=== PATIENT | male | born 1945 | race Caucasian/White ===

== ENCOUNTER → 2017-08-21 | Outpatient (CLI) | payer MEDICARE ==
--- NOTE | 2017-08-21 15:31 | RADIOLOGY REPORT (SQ) ---
EXAM DESCRIPTION: CT LUNG CANCER SCREENING COMPLETED DATE/TIME: 08/21/2017 1:12 pm REASON FOR STUDY: NICOTINE DEPENDENCE, UNSPECIFIED,UNCOMPLICATED (F17.200) F17.200 NICOTINE DEPENDE NCE, UNSPECIFIED, UNCOMPLICATED Has the patient had a Chest CT scan within the past year? Was the patient offered tobacco cessation counseling? Was the patient engaged in shared decision making for this test? Does the patient have signs or symptoms of Lung Cancer? Is the patient a smoker? How many packs per year? How many years since quitting smoking? Patients age: COMPARISON: None. TECHNIQUE: Low Dose CT scan performed of the chest without intravenous contrast for purposes of scre ening for lung cancer. Images reviewed with lung, soft tissue and bone windows. Reconstructed coron al and sagittal MPR images reviewed. All images stored on PACS. All CT scanners at this facility use dose modulation, iterative reconstruction, and/or weight based d osing when appropriate to reduce radiation dose to as low as reasonably achievable (ALARA). [facility]: Dose Right [facility]: CareDose [facility]: Dose Right [facility]: Teradose 4D [facility]: [employer] RADIATION DOSE: Up-to-date CT equipment and radiation dose reduction techniques were employed. CTDIv ol: 2.1 mGy. DLP: 92 mGy-cm. mGy. . LIMITATIONS: None FINDINGS: LUNGS AND PLEURA: No masses or nodules. No pleural effusions or calcifications. No pne umothorax. Centrilobular and paraseptal emphysema in the upper lobes. HILAR AND MEDIASTINAL STRUCTURES: No identified masses. No abnormal nodes. HEART AND VASCULAR STRUCTURES: No aortic aneurysm. No pericardial effusion. No cardiac devices. CORONARY ARTERY CALCIFICATIONS: Not Applicable status post CABG. UPPER ABDOMEN, THYROID, BONES, OTHER SOFT TISSUES: Large hiatal hernia. IMPRESSION: NEGATIVE LUNG CANCER SCREENING. OTHER FINDINGS ABOVE. LUNGRADS: LUNGRADS: 1 NEGATIVE. NO NODULES, OR DEFINITELY BENIGN NODULES MODIFIER: NONE RECOMMENDATION: Continue annual screening with LDCT in 12 months. COMMENT: CRITERIA: No lung nodules. Nodules with specific calcifications: Complete, central, popcorn, concentric rings and fat containin g nodules. TECHNICAL DOCUMENTATION: JOB ID: [id number] Quality ID # [id number]: Final reports with documentation of one or more dose reduction techniques (e.g., Au tomated exposure control, adjustment of the mA and/or kV according to patient size, use of iterative reconstruction technique) 2010 [employer]
== END ==
LOC: RAD 12:44
PROVIDERS: ATTEND Family Medicine
DX: Z12.2 Encounter for screening for malignant neoplasm of respiratory organs (principal); Z87.891 Personal history of nicotine dependence
CPT/HCPCS: G0297

== ENCOUNTER 2018-01-27 10:53 | Emergency (ER) | payer MEDICARE ==
[2018-01-27] MEDS ORDERED: IPRATROPIUM/ALBUTEROL 0.5-2.5 MG/3 ML AMPUL NEB ONE (11:24)
[2018-01-27] MEDS ORDERED: MAGNESIUM SULFATE/D5W 1 GM/100 ML RTUPB IV ONE (11:24)
[2018-01-27] MEDS ORDERED: ALBUTEROL SULFATE 0.083% NEB 2.5 MG/3 ML AMPUL NEB ONE (11:24)
--- NOTE | 2018-01-27 11:25 | ER Document Report ---
ED Medical Screen (RME) - General Chief Complaint: Shortness Of Breath Stated Complaint: SHORTNESS OF BREATH TRAVEL OUTSIDE OF THE [place] IN LAST 30 DAYS: No - HPI Notes: 01/27/18 11:23 Shortness of breath history of smoking cough no chest pain - Related Data Allergies/Adverse Reactions: Penicillins Allergy (Unknown, Verified 10/06/12 14:54) Past Medical History - Past Medical History Cardiac Medical History: Reports: Hx Coronary Artery Disease, Hx Heart Attack, Hx Hypercholesterolemia, Hx Hypertension Pulmonary Medical History: Reports: Hx Asthma Denies: Hx Bronchitis, Hx Pneumonia Renal/ Medical History: Denies: Hx Peritoneal Dialysis Past Surgical History: Reports: Hx Cardiac Surgery - CABG x 4, Hx Orthopedic Surgery - wirst fractures on right - Immunizations Hx Diphtheria, Pertussis, Tetanus Vaccination: No Review of Systems - Review of Systems Respiratory: Cough, Short of breath Physical Exam - Vital signs Vitals: Temp Pulse Resp BP Pulse Ox 97.8 F 54 L 16 131/62 H 96 01/27/18 10:59 01/27/18 10:59 01/27/18 10:59 01/27/18 10:59 01/27/18 10:59 - Respiratory Breath sounds: Rhonchi, Wheezing - Cardiovascular Rhythm: Regular, Tachycardia Course - Re-evaluation Re-evalutation: 01/27/18 11:24 I have greeted and performed a rapid initial assessment of this patient. A comprehensive ED assessment and evaluation of the patient, analysis of test results and completion of the medical decision making process will be conducted by additional ED providers. - Vital Signs Vital signs: Temp Pulse Resp BP Pulse Ox 97.8 F 54 L 16 131/62 H 96 01/27/18 10:59 01/27/18 10:59 01/27/18 10:59 01/27/18 10:59 01/27/18 10:59
[2018-01-27 11:51] LABS: HEMATOCRIT 36.8 % (37.9-51.0); MEAN CORPUSCULAR HEMOGLOBIN 25.9 pg (27.0-33.4); MEAN CORPUSCULAR HGB CONC 32.6 g/dL (32.0-36.0); MEAN CORPUSCULAR VOLUME 80 fl (80-97); PLATELET COUNT 338 10^3/uL (150-450); RED BLOOD COUNT 4.63 10^6/uL (4.35-5.55); RED CELL DISTRIBUTION WIDTH 14.3 % (11.5-14.0)
[2018-01-27 11:52] LABS: VENOUS BLOOD BASE EXCESS -1.1 mmol/L; VENOUS BLOOD HCO3 25.9 mmol/L (20-32); VENOUS BLOOD PCO2 53.3 mmHg (35-63); VENOUS BLOOD PH 7.3 (7.30-7.42)
[2018-01-27 12:11] LABS: ALANINE AMINOTRANSFERASE 24 U/L (21-72); ALBUMIN 4.5 g/dL (3.5-5.0); ALKALINE PHOSPHATASE 60 U/L (38-126); ANION GAP 11 (5-19); ASPARTATE AMINO TRANSFERASE 26 U/L (17-59); BILIRUBIN,DIRECT 0.1 mg/dL (0.0-0.4); BILIRUBIN,TOTAL 0.8 mg/dL (0.2-1.3); BLOOD UREA NITROGEN 24 mg/dL (7-20); CALCIUM 9.2 mg/dL (8.4-10.2); CARBON DIOXIDE 28 mmol/L (22-30); CHLORIDE 104 mmol/L (98-107); CREATINE KINASE 203 U/L (55-170); GLUCOSE 96 mg/dL (75-110); POTASSIUM 4.5 mmol/L (3.6-5.0); SODIUM 143.2 mmol/L (137-145); TOTAL PROTEIN 7.2 g/dL (6.3-8.2)
--- NOTE | 2018-01-27 12:14 | RADIOLOGY REPORT (SQ) ---
EXAM DESCRIPTION: CHEST SINGLE VIEW COMPLETED DATE/TIME: 01/27/2018 11:55 am REASON FOR STUDY: sob COMPARISON: 01/08/2016 EXAM PARAMETERS: NUMBER OF VIEWS: One view. TECHNIQUE: Single frontal radiographic view of the chest acquired. RADIATION DOSE: NA LIMITATIONS: None. FINDINGS: LUNGS AND PLEURA: No opacities, masses or pneumothorax. No pleural effusion. MEDIASTINUM AND HILAR STRUCTURES: There appears to be a small hiatal hernia. HEART AND VASCULAR STRUCTURES: Heart normal in size. Normal vasculature. BONES: No acute findings. HARDWARE: Sternotomy wires. OTHER: No other significant finding. IMPRESSION: Small hiatal hernia with no acute cardiopulmonary disease. TECHNICAL DOCUMENTATION: JOB ID: [id number] [employer]- All Rights Reserved Reading location - IP/workstation name: [email or web address]
[2018-01-27 12:17] LABS: ABSOLUTE LYMPHOCYTES# (MANUAL) 1.7 10^3/uL (0.5-4.7); ABSOLUTE NEUTROPHILS# (MANUAL) 2.6 10^3/uL (1.7-8.2); BASOPHILS % (MANUAL) 0 % (0-2); LYMPHOCYTES % (MANUAL) 24 % (13-45); MONOCYTES % (MANUAL) 14 % (3-13); SEGMENTED NEUTROPHILS % (MAN) 37 % (42-78); TOTAL CELLS COUNTED 100
[2018-01-27 12:18] LABS: EOSINOPHILS % (MANUAL) 25 % (0-6)
[2018-01-27 12:21] LABS: HYPOCHROMASIA SLIGHT; PLATELET COMMENT ADEQUATE; POLYCHROMASIA SLIGHT
[2018-01-27 12:23] LABS: TROPONIN I < 0.012 ng/mL
[2018-01-27] MEDS ORDERED: ACETAMINOPHEN WITH CODEINE 120-12 MG/5 ML UDCUP PO ONE (12:55)
--- NOTE | 2018-01-27 13:58 | ER Document Report ---
ED Respiratory Problem - General Chief Complaint: Shortness Of Breath Stated Complaint: SHORTNESS OF BREATH Time Seen by Provider: 01/27/18 11:25 Mode of Arrival: Ambulatory Information source: Patient, Relative Notes: Patient is a 72-year-old male with history of COPD and CHF who presents to the ER today for 1 week of worsening shortness of breath and wheezing with productive cough of thick green sputum. Patient denies any fevers or chills, body aches that he has noticed. He states that he is more short of breath walking around and has been having to sleep on multiple pillows or in the recliner over the past week in order to breathe he denies any swelling to his lower extremities. He has been using his albuterol inhaler 1-2 times a day which has been helping a little. TRAVEL OUTSIDE OF THE [place] IN LAST 30 DAYS: No - Related Data Allergies/Adverse Reactions: Penicillins Allergy (Unknown, Verified 10/06/12 14:54) Past Medical History - General Information source: Patient - Social History Smoking Status: Former Smoker Family History: Reviewed & Not Pertinent Patient has suicidal ideation: No Patient has homicidal ideation: No - Past Medical History Cardiac Medical History: Reports: Hx Coronary Artery Disease, Hx Heart Attack, Hx Hypercholesterolemia, Hx Hypertension Pulmonary Medical History: Reports: Hx Asthma Denies: Hx Bronchitis, Hx Pneumonia Renal/ Medical History: Denies: Hx Peritoneal Dialysis Past Surgical History: Reports: Hx Cardiac Surgery - CABG x 4, Hx Orthopedic Surgery - wirst fractures on right - Immunizations Hx Diphtheria, Pertussis, Tetanus Vaccination: No Review of Systems - Review of Systems Constitutional: No symptoms reported EENT: No symptoms reported Cardiovascular: No symptoms reported Respiratory: See HPI Gastrointestinal: No symptoms reported Genitourinary: No symptoms reported Male Genitourinary: No symptoms reported Musculoskeletal: No symptoms reported Skin: No symptoms reported Hematologic/Lymphatic: No symptoms reported Neurological/Psychological: No symptoms reported Physical Exam - Vital signs Vitals: Temp Pulse Resp BP Pulse Ox 97.8 F 54 L 16 131/62 H 96 01/27/18 10:59 01/27/18 10:59 01/27/18 10:59 01/27/18 10:59 01/27/18 10:59 - Notes Notes: PHYSICAL EXAMINATION: GENERAL: Well-appearing and in no acute distress. HEAD: Atraumatic, normocephalic. EYES: Pupils equal round and reactive to light, extraocular movements intact, sclera anicteric, conjunctiva are normal. ENT: ear canals without erythema or foreign body, TMs pearly mckeon with good bony landmarks, nares patent, oropharynx clear without exudates. Moist mucous membranes. Airway patent NECK: Normal range of motion, supple without lymphadenopathy LUNGS: Mild expiratory wheezes throughout, no rales or rhonchi. HEART: Regular rate and rhythm without murmurs ABDOMEN: Soft, no tenderness. No guarding, no rebound BACK: no vertebral tenderness, normal ROM GI/: no CVA tenderness EXTREMITIES: Normal range of motion, no pitting edema. No cyanosis. NEUROLOGICAL: Cranial nerves grossly intact. Normal sensory/motor exams. PSYCH: Normal mood, normal affect. SKIN: Warm, Dry, normal turgor, no rashes or lesions noted Course - Re-evaluation Re-evalutation: 01/29/18 10:22 Laboratory workup unremarkable today, chest x-ray negative for any acute pathology, no pneumonia or fluid buildup, no pitting edema to lower extremities. Patient was satting at 100% on room air here without any tachycardia or tachypnea, vital signs all within normal limits. I will start patient on azithromycin, provide him with steroids. 01/29/18 10:23 01/29/18 10:23 01/29/18 10:24 - Vital Signs Vital signs: Temp Pulse Resp BP Pulse Ox 97.8 F 54 L 17 124/64 100 01/27/18 10:59 01/27/18 10:59 01/27/18 13:05 01/27/18 13:05 01/27/18 13:05 - Laboratory Result Diagrams: 01/27/18 11:35 01/27/18 11:35 Laboratory results interpreted by me: 01/27/18 01/27/18 11:35 11:35 Hgb 12.0 L Hct 36.8 L MCH 25.9 L RDW 14.3 H Seg Neuts % (Manual) 37 L Monocytes % (Manual) 14 H Eosinophils % (Manual) 25 H Absolute Eos (Manual) 1.8 H BUN 24 H Creatinine 1.32 H Est GFR (Non-Af Amer) 53 L Creatine Kinase 203 H Discharge - Discharge Clinical Impression: COPD exacerbation Condition: Stable Disposition: HOME, SELF-CARE Additional Instructions: Return immediately for any new or worsening symptoms. Follow up with primary care provider, call tomorrow to make followup appointment. Prescriptions: Azithromycin [Zithromax 250 mg Tablet] 250 mg PO ASDIR PRN #6 tablet PRN Reason: Prednisone [Deltasone 20 mg Tablet] 3 tab PO DAILY 5 Days tablet
[2018-01-27 14:22] VITALS: BP 124/64
--- NOTE | 2018-01-27 19:22 | EKG REPORT ---
SEVERITY:- ABNORMAL ECG - SINUS RHYTHM ABNORMAL T, CONSIDER ISCHEMIA, ANT-LAT LEADS : Confirmed by: Aris Narayanan 27-Jan-2018 19:21:38
[2018-01-28 15:26] LABS: PATH REVIEW PATHOLOGIST REVIEWED
== END 2018-01-27 14:26 | disposition home or self-care (01) ==
LOC: ER 10:53
DX: J44.1 Chronic obstructive pulmonary disease with (acute) exacerbation (principal); R06.02 Shortness of breath; R05 Cough; I25.10 Atherosclerotic heart disease of native coronary artery without angina pectoris; I10 Essential (primary) hypertension; I25.2 Old myocardial infarction; Z88.0 Allergy status to penicillin; Z87.891 Personal history of nicotine dependence; Z95.1 Presence of aortocoronary bypass graft
CPT/HCPCS: 93005; 94640 ×2; 99285; 96374; 36415; 82553; 82550; 83735; 85025; 80053; 84484; 82803; 71045; 93010; A9270 ×3; J3475; J3490; J7620

== ENCOUNTER 2019-10-26 12:32 | Emergency (ER) | payer MEDICARE ==
[2019-10-26] MEDS ORDERED: IBUPROFEN 600 MG TABLET PO ONE (13:36)
--- NOTE | 2019-10-26 13:40 | ER Document Report ---
HPI - HPI Time Seen by Provider: 10/26/19 13:29 Pain Level: 1 Context: Patient is a 74-year-old male who presents to the emergency department with a chief complaint of left foot pain. Patient reports yesterday afternoon a horse stepped on the top of his left foot. Patient reports he is mostly having pain to the second, third and fourth digits of the left foot. Patient denies bruising or swelling. Patient denies deformity. Patient reports he is able to ambulate although this does induce pain. Patient reports he did take some Tylenol around 10 AM this morning. Patient reports he sought care to do an x- ray to rule out fracture. Patient denies history of diabetes or any open wounds to the foot. Past Medical History - General Information source: Patient - Social History Smoking Status: Former Smoker Frequency of alcohol use: None Drug Abuse: None Lives with: Family Family History: Reviewed & Not Pertinent Patient has suicidal ideation: No Patient has homicidal ideation: No - Past Medical History Cardiac Medical History: Reports: Hx Coronary Artery Disease, Hx Heart Attack, Hx Hypercholesterolemia, Hx Hypertension Pulmonary Medical History: Reports: Hx Asthma Denies: Hx Bronchitis, Hx Pneumonia EENT Medical History: Reports: None Neurological Medical History: Reports: None Endocrine Medical History: Reports: None Renal/ Medical History: Reports: None. Denies: Hx Peritoneal Dialysis Malignancy Medical History: Reports None GI Medical History: Reports: None Musculoskeletal Medical History: Reports None Skin Medical History: Reports None Psychiatric Medical History: Reports: None Traumatic Medical History: Reports: None Infectious Medical History: Reports: None Past Surgical History: Reports: Hx Cardiac Surgery - CABG x 4, Hx Orthopedic Surgery - wirst fractures on right - Immunizations Hx Diphtheria, Pertussis, Tetanus Vaccination: No Vertical Provider Document - CONSTITUTIONAL Agree With Documented VS: Yes Exam Limitations: No Limitations General Appearance: No Apparent Distress - INFECTION CONTROL TRAVEL OUTSIDE OF THE [place] IN LAST 30 DAYS: No - HEENT HEENT: Atraumatic, Normal ENT Exam, Normocephalic, PERRLA - NECK Neck: Normal Inspection - RESPIRATORY Respiratory: Breath Sounds Normal, No Respiratory Distress - CARDIOVASCULAR Cardiovascular: Regular Rate, Regular Rhythm - GI/ABDOMEN Gastrointestinal: Abdomen Soft, Abdomen Non-Tender, Normal Bowel Sounds - BACK Back: Normal Inspection - MUSCULOSKELETAL/EXTREMETIES Musculoskeletal/Extremeties: FROM, Tender Notes: Patient has tenderness noted to the left second third and fourth metatarsal. There is no ecchymosis, edema or erythema. There is no open wound. - NEURO Level of Consciousness: Awake, Alert, Appropriate - DERM Integumentary: Warm, Dry, No Rash Course - Re-evaluation Re-evalutation: 10/26/19 15:23 I did discuss the results of the x-ray with the patient and were informed him that it is imperative he follows up due to the lesions on his foot. Patient reports he does see Dr. Leonardo that he will call his office to make an appointment. I reiterated the importance so they can rule out possible metastasis versus benign etiology. I did inform him that the radiologist recommended an MRI. Patient verbalized understanding. - Vital Signs Vital signs: Temp Pulse Resp BP Pulse Ox 97.6 F 81 16 126/68 H 95 10/26/19 12:37 10/26/19 12:37 10/26/19 12:37 10/26/19 12:37 10/26/19 12:37 - Diagnostic Test Radiology reviewed: Reports reviewed Radiology results interpreted by me: 10/26/19 14:51 Foot X-Ray 10/26/19 13:36 IMPRESSION: NO RADIOGRAPHIC EVIDENCE OF ACUTE INJURY. SEVERAL LUCENT LESIONS IN THE PHALANGES OF THE 1ST AND 2ND TOE. THESE COULD BE DUE TO METASTASES ALTHOUGH OTHER ETIOLOGIES INCLUDING BENIGN PROCESSES MAY ALSO BE POSSIBLE. WOULD CONSIDER FOLLOW-UP WITH ROUTINE OUTPATIENT MRI OF THE FOOT. Discharge - Discharge Clinical Impression: Left foot pain Condition: Stable Disposition: HOME, SELF-CARE Additional Instructions: *Today you are seen in the emergency department for left foot pain after being stepped on by a horse. Your foot x-ray did not show any acute abnormality such as a fracture or dislocation. It was noted that you had several lesions to the first and second toe. It is unsure what is causing these lesions but it could be something benign or cancerous. It was recommended by the radiologist to consider a follow-up with routine outpatient MRI of the foot. I have provided you with a printout of your x-ray read. I would take this to your primary care physician so this can be further evaluated. *Your diagnosis today is a left foot contusion. This is due to a crushing of deep tissues. Ice, elevate the left foot. Use Tylenol and ibuprofen. Please return the emergency department if pain increases or if swelling becomes severe. Contusion Your injury has resulted in a contusion -- a crushing of the deep tissues. No injury to important structures was detected during the physician's exam. Contusions vary in the amount of pain they cause, and in the length of time required for healing. Typically, the area will become bruised, and will remain painful to touch for two or three weeks. However, most patients are back to working and playing within a few days. After the initial period of rest and cold-packs, your symptoms (together with the doctor's recommendations) will determine how rapidly you can get back to full activity. Usually this means "do what feels okay, but don't do things that hurt." If re-examination was recommended, it's important to follow up as instructed. Call the doctor or return any time if pain increases, if swelling becomes severe, if you develop numbness or weakness in an injured extremity, or if any other alarming symptoms occur.
--- NOTE | 2019-10-26 14:47 | RADIOLOGY REPORT (SQ) ---
EXAM DESCRIPTION: FOOT LEFT COMPLETE COMPLETED DATE/TIME: 10/26/2019 2:34 pm REASON FOR STUDY: horse stepped on top of left foot COMPARISON: None. NUMBER OF VIEWS: Three views. TECHNIQUE: AP, lateral and oblique radiographic images acquired of the left foot. LIMITATIONS: None. FINDINGS: MINERALIZATION: Normal. BONES: No acute fracture or dislocation. There are several lucent lesions in the phalanges of the 1s t and 2nd toe. JOINTS: No effusions. SOFT TISSUES: No soft tissue swelling. No foreign body. OTHER: No other significant finding. IMPRESSION: NO RADIOGRAPHIC EVIDENCE OF ACUTE INJURY. SEVERAL LUCENT LESIONS IN THE PHALANGES OF TH E 1ST AND 2ND TOE. THESE COULD BE DUE TO METASTASES ALTHOUGH OTHER ETIOLOGIES INCLUDING BENIGN PROCE SSES MAY ALSO BE POSSIBLE. WOULD CONSIDER FOLLOW-UP WITH ROUTINE OUTPATIENT MRI OF THE FOOT. TECHNICAL DOCUMENTATION: JOB ID: [id number] [employer]- All Rights Reserved Reading location - IP/workstation name: [email or web address]
[2019-10-26 15:10] VITALS: BP 129/58
== END 2019-10-26 15:10 | disposition home or self-care (01) ==
LOC: ER 12:32
DX: M79.675 Pain in left toe(s) (principal); W55.12XA Struck by horse, initial encounter; M89.9 Disorder of bone, unspecified; I25.10 Atherosclerotic heart disease of native coronary artery without angina pectoris; I10 Essential (primary) hypertension; J45.909 Unspecified asthma, uncomplicated; Z87.891 Personal history of nicotine dependence
CPT/HCPCS: 99283; 73630; A9270

== ENCOUNTER 2020-08-02 11:07 | Inpatient (IN) | payer MEDICARE ==
[2020-08-02] MEDS ORDERED: LEVOFLOXACIN 750 MG/D5W RTU 750 MG/150 ML RTUPB IV ONE (12:39)
[2020-08-02] MEDS ORDERED: DIPH/PERTUSS(ACELL)/TETANUS VAC/PF 0.5 ML SYR (>=10YO) IM ONE (12:48)
--- NOTE | 2020-08-02 12:48 | ER Document Report ---
ED General - General Stated Complaint: FEVER Time Seen by Provider: 08/02/20 12:21 Primary Care Provider: SANA COLLINS MD [Primary Care Provider] - Follow up as needed Notes: CHIEF COMPLAINT: Cough, fever HPI: 74-year-old male with history of hypertension, high cholesterol, CAD, CABG x4, COPD presenting for worsening cough over the last 2 to 3 days. Patient reports some lightheadedness and had a fall last night because of the lightheade dness hitting his head on a dresser and cutting the top of his head. States he just gotten out of bed when he became lightheaded. Denies lightheadedness today. Denies shortness of breath today. Denies nausea vomiting abdominal pain today. Patient states he has had fevers up to 102 in the last 2 days. ROS: See HPI - all other systems were reviewed and are otherwise negative Constitutional: + fever Eyes: no drainage, no blurred vision ENT: no runny nose, no sore throat Cardiovascular: no chest pain Resp: no SOB, + cough GI: no vomiting, no diarrhea, no abdominal pain : no dysuria Integumentary: no rash Allergy: no hives Musculoskeletal: no extremity pain or swelling Neurological: no numbness/tingling, no weakness MEDICATIONS: I agree with the patient medications as charted by the RN. ALLERGIES: I agree with the allergies as charted by the RN. PAST MEDICAL HISTORY/PAST SURGICAL HISTORY: Reviewed and agree as charted by RN. SOCIAL HISTORY: Reviewed and agree as charted by RN. FAMILY HISTORY: No significant familial comorbid conditions directly related to patient complaint EXAM: Reviewed vital signs as charted by RN. CONSTITUTIONAL: Alert and oriented and responds appropriately to questions. Well-appearing; well-nourished HEAD: Normocephalic; superficial skin tear noted to the vertex of the scalp without depression of the skull or tenderness on palpation EYES: PERRL; Conjunctivae clear, sclerae non-icteric ENT: normal nose; no rhinorrhea; moist mucous membranes; pharynx without lesions noted, no uvula edema or deviation, no tonsillar hypertrophy, phonation normal NECK: Supple without meningismus; non-tender; no cervical lymphadenopathy, no masses CARD: Mild tachycardia; no murmurs, no clicks, no rubs, no gallops; symmetric distal pulses RESP: Normal chest excursion without splinting or tachypnea; breath sounds noted to have rhonchi on the right, pulse oximetry 93% on room air mildly hypoxic ABD/GI: Normal bowel sounds; non-distended; soft, non-tender, no rebound, no guarding; no palpable organomegaly or masses. BACK: The back appears normal and is non-tender to palpation, there is no CVA tenderness EXT: Normal ROM in all joints; non-tender to palpation; no cyanosis, no effusions, no edema SKIN: Normal color for age and race; warm; dry; good turgor; no acute lesions noted NEURO: Moves all extremities equally; Motor and sensory function intact PSYCH: The patient's mood and manner are appropriate. Grooming and personal hygiene are appropriate. MDM: 74-year-old male presenting with cough and fever over the last 3 days. Patient initially was mildly hypotensive with a systolic pressure of 90, states he does take 2 blood pressure medications at home did take them today and does not normally check his blood pressure. Patient fell and hit his head last night stating he was lightheaded when he got out of the bed. Has had fever up to 102 at home in the last 2 days. He has rhonchi in the right chest on exam. Concern for pneumonia or sepsis. Will obtain chest x-ray, sepsis labs. Sepsis fluids were ordered, has already received 1 L normal saline due to hypotension prior to my evaluation so we will add 2 L of lactated Ringer's to complete his bolus of 2400 at 30 mL/kg. TRAVEL OUTSIDE OF THE [place] IN LAST 30 DAYS: No - Related Data Allergies/Adverse Reactions: Penicillins Allergy (Unknown, Verified 10/06/12 14:54) Past Medical History - Social History Smoking Status: Unknown if Ever Smoked Family History: Reviewed & Not Pertinent - Past Medical History Cardiac Medical History: Reports: Hx Coronary Artery Disease, Hx Heart Attack, Hx Hypercholesterolemia, Hx Hypertension Pulmonary Medical History: Reports: Hx Asthma Denies: Hx Bronchitis, Hx Pneumonia Renal/ Medical History: Denies: Hx Peritoneal Dialysis Past Surgical History: Reports: Hx Cardiac Surgery - CABG x 4, Hx Orthopedic Surgery - wirst fractures on right - Immunizations Hx Diphtheria, Pertussis, Tetanus Vaccination: No Physical Exam - Vital signs Vitals: Temp 99.8 F 08/02/20 11:09 Course - Re-evaluation Re-evalutation: 08/02/20 15:07 Patient appears to have a left lower lobe infiltrate suggesting pneumonia which is consistent with the patient's history. Patient troponin was slightly bumped at 0.088. Pulse oximetry between 89 and 91% on room air. Patient with a leukocytosis of 15.6. BNP is also slightly elevated. Spoke with Dr. Calderon hospitalist service who will come down to evaluate the patient. Patient has been given sepsis fluids and Rocephin. 08/02/20 15:[address] Blair attending - Vital Signs Vital signs: Temp Pulse Resp BP Pulse Ox 99.1 F 96 16 102/61 100 08/02/20 11:16 08/02/20 11:16 08/02/20 11:16 08/02/20 12:18 08/02/20 11:16 - Laboratory Result Diagrams: 08/02/20 11:40 08/02/20 11:40 Laboratory results interpreted by me: 08/02/20 08/02/20 08/02/20 11:40 11:40 11:40 WBC 15.6 H RDW 14.7 H Seg Neuts % (Manual) 81 H Lymphocytes % (Manual) 3 L Abs Neuts (Manual) 13.3 H Abs Monocytes (Manual) 1.7 H BUN 29 H Creatinine 1.96 H Est GFR ( Amer) 40 L Est GFR (MDRD) Non-Af 33 L NT-Pro-B Natriuret Pep 1520 H Urine Protein Urine Blood 08/02/20 14:40 WBC RDW Seg Neuts % (Manual) Lymphocytes % (Manual) Abs Neuts (Manual) Abs Monocytes (Manual) BUN Creatinine Est GFR ( Amer) Est GFR (MDRD) Non-Af NT-Pro-B Natriuret Pep Urine Protein 30 H Urine Blood MODERATE H Discharge - Discharge Clinical Impression: Fever in adult, Hypoxia Pneumonia Qualifiers: Pneumonia type: due to unspecified organism Laterality: left Lung location: lower lobe of lung Qualified Code(s): J18.9 - Pneumonia, unspecified organism Condition: Stable Disposition: ADMITTED INPATIENT Unit Admitted: Telemetry Referrals: SANA COLLINS MD [Primary Care Provider] - Follow up as needed
[2020-08-02 13:15] LABS: PROTHROMBIN TIME 14.4 SEC (11.4-15.4)
[2020-08-02 13:20] LABS: ALBUMIN 4.3 g/dL (3.5-5.0); ALKALINE PHOSPHATASE 56 U/L (38-126); ANION GAP 14 (5-19); ASPARTATE AMINO TRANSFERASE 42 U/L (17-59); BILIRUBIN,DIRECT 0.4 mg/dL (0.0-0.4); BILIRUBIN,TOTAL 1.1 mg/dL (0.2-1.3); BLOOD UREA NITROGEN 29 mg/dL (7-20); CALCIUM 8.5 mg/dL (8.4-10.2); CARBON DIOXIDE 22 mmol/L (22-30); CHLORIDE 101 mmol/L (98-107); GLUCOSE 109 mg/dL (75-110); POTASSIUM 3.9 mmol/L (3.6-5.0); TOTAL PROTEIN 7.3 g/dL (6.3-8.2)
[2020-08-02 13:25] LABS: HEMATOCRIT 39.3 % (37.9-51.0); HEMOGLOBIN 13.7 g/dL (13.5-17.0); MEAN CORPUSCULAR HEMOGLOBIN 29.2 pg (27.0-33.4); MEAN CORPUSCULAR HGB CONC 34.9 g/dL (32.0-36.0); MEAN CORPUSCULAR VOLUME 84 fl (80-97); PLATELET COUNT 244 10^3/uL (150-450); RED BLOOD COUNT 4.71 10^6/uL (4.35-5.55); RED CELL DISTRIBUTION WIDTH 14.7 % (11.5-14.0); WHITE BLOOD COUNT 15.6 10^3/uL (4.0-10.5)
[2020-08-02 13:38] LABS: VENOUS BLOOD BASE EXCESS -2.8 mmol/L; VENOUS BLOOD HCO3 22.8 mmol/L (20-32); VENOUS BLOOD PCO2 42.7 mmHg (35-63); VENOUS BLOOD PH 7.35 (7.30-7.42)
[2020-08-02 13:42] LABS: TROPONIN I 0.088 ng/mL
[2020-08-02 13:51] LABS: ABSOLUTE LYMPHOCYTES# (MANUAL) 0.6 10^3/uL (0.5-4.7); ABSOLUTE MONOCYTES # (MANUAL) 1.7 10^3/uL (0.1-1.4); BAND NEUTROPHILS % (MANUAL) 4 % (3-5); BASOPHILS % (MANUAL) 0 % (0-2); EOSINOPHILS % (MANUAL) 0 % (0-6); LYMPHOCYTES % (MANUAL) 3 % (13-45); MONOCYTES % (MANUAL) 11 % (3-13); SEGMENTED NEUTROPHILS % (MAN) 81 % (42-78); TOTAL CELLS COUNTED 100
[2020-08-02 13:53] LABS: RBC MORPHOLOGY COMMENT NORMO-CYTIC/CHROMIC
[2020-08-02 13:54] LABS: PLATELET COMMENT ADEQUATE
[2020-08-02 13:56] LABS: ANISOCYTOSIS SLIGHT
--- NOTE | 2020-08-02 13:56 | RADIOLOGY REPORT (SQ) ---
EXAM DESCRIPTION: CT HEAD WITHOUT IMAGES COMPLETED DATE/TIME: 08/02/2020 1:47 pm REASON FOR STUDY: trauma COMPARISON: None. TECHNIQUE: Axial images acquired through the brain without intravenous contrast. Images reviewed wit h bone, brain and subdural windows. Images stored on PACS. All CT scanners at this facility use dose modulation, iterative reconstruction, and/or weight based d osing when appropriate to reduce radiation dose to as low as reasonably achievable (ALARA). [facility]: Dose Right [facility]: CareDose [facility]: Dose Right [facility]: Teradose 4D [facility]: Smart Local [employer] RADIATION DOSE: CT Rad equipment meets quality standard of care and radiation dose reduction techniq ues were employed. CTDIvol: 53.2 mGy. DLP: 991 mGy-cm.. LIMITATIONS: None. FINDINGS: VENTRICLES: Normal size and contour. CEREBRUM: No masses. No hemorrhage. No midline shift. Age appropriate white matter. No evidence for a cute infarction. CEREBELLUM: No masses. No hemorrhage. No alteration of density. No evidence for acute infarction. EXTRA-AXIAL SPACES: No fluid collections. ORBITS AND GLOBE: No intra- or extraconal masses. Normal contour of globe without masses. CALVARIUM: No fracture. PARANASAL SINUSES: Mild mucosal thickening. SOFT TISSUES: No mass or hematoma. OTHER: No other significant finding. IMPRESSION: NO ACUTE INTRACRANIAL FINDINGS. EVIDENCE OF ACUTE STROKE: NO. TECHNICAL DOCUMENTATION: JOB ID: [id number] Quality ID # [id number]: Final reports with documentation of one or more dose reduction techniques (e.g., Au tomated exposure control, adjustment of the mA and/or kV according to patient size, use of iterative reconstruction technique) 2010 [employer]- All Rights Reserved Reading location - IP/workstation name: [employer]
[2020-08-02 14:00] LABS: A TYPE INFLUENZA AG NEGATIVE (NEGATIVE); B INFLUENZA AG NEGATIVE (NEGATIVE)
--- NOTE | 2020-08-02 14:44 | RADIOLOGY REPORT (SQ) ---
EXAM DESCRIPTION: CHEST SINGLE VIEW IMAGES COMPLETED DATE/TIME: 08/02/2020 2:29 pm REASON FOR STUDY: sob COMPARISON: 01/07/2018 EXAM PARAMETERS: NUMBER OF VIEWS: One view. TECHNIQUE: Single frontal radiographic view of the chest acquired. RADIATION DOSE: NA LIMITATIONS: None. FINDINGS: LUNGS AND PLEURA: Low lung volumes with resultant bronchovascular crowding. Left lung bas e patchy mixed interstitial and airspace opacities. No pleural effusion. No pneumothorax. MEDIASTINUM AND HILAR STRUCTURES: No masses. Contour normal. HEART AND VASCULAR STRUCTURES: Mild cardiomegaly without central vascular congestion. BONES: No acute findings. HARDWARE: Midline surgical changes. OTHER: No other significant finding. IMPRESSION: In the appropriate clinical setting, findings are consistent with left lung base multifo shawn pneumonia. TECHNICAL DOCUMENTATION: JOB ID: [id number] 2010 [employer]- All Rights Reserved Reading location - IP/workstation name: [email or web address]
[2020-08-02 14:59] LABS: APPEARANCE,URINE SLIGHTLY-CLOUDY; BILIRUBIN,URINE NEGATIVE (NEGATIVE); COLOR,URINE YELLOW; GLUCOSE, URINE NEGATIVE (NEGATIVE); KETONES,URINE NEGATIVE (NEGATIVE); LEUKOCYTE ESTERASE,URINE NEGATIVE (NEGATIVE); NITRITE,URINE NEGATIVE (NEGATIVE); PROTEIN,URINE 30 mg/dL (NEGATIVE); URINE SPECIFIC GRAVITY 1.015; UROBILINOGEN,URINE NEGATIVE mg/dL (<2.0)
[2020-08-02] MEDS ORDERED: ONDANSETRON HCL INJ/PF 4 MG/2 ML SDV IV PRN (15:47)
[2020-08-02] MEDS ORDERED: NORMAL SALINE 1000 ML 1,000 ML IV PRN (15:47)
[2020-08-02] MEDS ORDERED: ACETAMINOPHEN 325 MG TABLET PO PRN (15:47)
--- NOTE | 2020-08-02 16:13 | PDOC H&P ---
History of Present Illness Admission Date/PCP: 08/02/20 15:16 SANA COLLINS MD History of Present Illness: MILDRED MORLEY JR is a 74 year old male with a history of COPD and coronary artery disease who presents with not quite 2 days of symptoms. He said that he had been with his daughter out in [facility] for a horse show and drove back on Saturday, and Saturday he noticed he started feeling a little poorly. He said he just felt sort of achy, and he felt like he had a fever, but otherwise he said he felt fine. He has not had any chest pain or shortness of breath. No cough or sore throat. No abdominal pain, nausea, or vomiting. He said he had one episode of diarrhea yesterday but it was an isolated episode and he has not had any before since. He has not been around anyone he knows to be sick. He said his daughter has no symptoms. He lives at home with his and she is in good health. He said he has not lost his sense of taste or smell. He said he ate food last night and this morning and he could taste and smell everything just fine. He said he had a temperature of 100.9 Fahrenheit at home this morning when he got here it was 99.8. His oxygen level was in the low 90s but he is very comfortable. His creatinine was a little bit elevated. Chest x-ray was r ead as having a left lower lobe opacity. Past Medical History Cardiac Medical History: Reports: Coronary Artery Disease, Myocardial Infarction, Hyperlipidema, Hypertension Pulmonary Medical History: Reports: Asthma Denies: Bronchitis, Pneumonia Past Surgical History Past Surgical History: Reports: Orthopedic Surgery - wirst fractures on right Social History Smoking Status: Unknown if Ever Smoked Electronic Cigarette use?: No Family History Family History: Reviewed & Not Pertinent Parental Family History Reviewed: Yes Children Family History Reviewed: Yes Sibling(s) Family History Reviewed.: Yes Medication/Allergy Home Medications: Hydrocodone Bit/Acetaminophen [Vicodin 5-500 mg Tablet] 1 - 2 tab PO ASDIR PRN #20 tablet 10/06/12 Prednisone [Deltasone 10 mg Tablet] 10 mg PO ASDIR PRN #21 tablet 10/06/12 Azithromycin 250 mg PO DAILY #4 tablet 01/08/16 Prednisone [Deltasone 10 mg Tablet] 10 mg PO ASDIR PRN #21 tablet 01/08/16 Azithromycin [Zithromax 250 mg Tablet] 250 mg PO ASDIR PRN #6 tablet 01/27/18 Prednisone [Deltasone 20 mg Tablet] 3 tab PO DAILY 5 Days tablet 01/27/18 Allergies/Adverse Reactions: Penicillins Allergy (Unknown, Verified 10/06/12 14:54) Review of Systems All systems: reviewed and no additional remarkable complaints except as stated - All systems were reviewed and were negative except as noted in the HPI Physical Exam Vital Signs: Temp Pulse Resp BP Pulse Ox 99.1 F 96 16 102/61 100 08/02/20 11:16 08/02/20 11:16 08/02/20 11:16 08/02/20 12:18 08/02/20 11:16 Intake & Output 08/01/20 08/02/20 08/03/20 06:59 06:59 06:59 Weight 79.379 kg General appearance: PRESENT: no acute distress, cooperative, disheveled Head exam: PRESENT: atraumatic, normocephalic Eye exam: PRESENT: EOMI, PERRLA. ABSENT: conjunctival injection, nystagmus, scleral icterus Ear exam: PRESENT: normal external ear exam Neck exam: PRESENT: full ROM. ABSENT: carotid bruit, JVD, lymphadenopathy, meningismus, tenderness, thyromegaly Respiratory exam: PRESENT: clear to auscultation sanjeev, symmetrical, unlabored. ABSENT: accessory muscle use, chest wall tenderness, crackles, prolonged expiratory phas, rhonchi, tachypnea, wheezes Cardiovascular exam: PRESENT: RRR, +S1, +S2 Pulses: PRESENT: normal carotid pulses Vascular exam: PRESENT: normal capillary refill GI/Abdominal exam: PRESENT: normal bowel sounds, soft. ABSENT: distended, guarding, rebound, tenderness Extremities exam: ABSENT: clubbing, pedal edema Musculoskeletal exam: PRESENT: normal inspection. ABSENT: deformity Neurological exam: PRESENT: alert, awake, oriented to person, oriented to place, oriented to situation, CN II-XII grossly intact. ABSENT: motor sensory deficit Psychiatric exam: PRESENT: appropriate affect, normal mood Skin exam: PRESENT: dry, warm Results Laboratory Results: 08/02/20 11:40 08/02/20 11:40 08/02/20 08/02/20 08/02/20 11:40 11:40 12:54 WBC 15.6 H RBC 4.71 Hgb 13.7 Hct 39.3 MCV 84 MCH 29.2 MCHC 34.9 RDW 14.7 H Plt Count 244 Seg Neutrophils % Not Reportable VBG pH VBG pCO2 VBG HCO3 VBG Base Excess Sodium 137.2 Potassium 3.9 Chloride 101 Carbon Dioxide 22 Anion Gap 14 BUN 29 H Creatinine 1.96 H Est GFR ( Amer) 40 L Glucose 109 Lactic Acid 1.4 Calcium 8.5 Total Bilirubin 1.1 AST 42 Alkaline Phosphatase 56 Total Protein 7.3 Albumin 4.3 Urine Color Urine Appearance Urine pH Ur Specific [place] Urine Protein Urine Glucose (UA) Urine Ketones Urine Blood Urine Nitrite Ur Leukocyte Esterase Urine WBC (Auto) Urine RBC (Auto) 08/02/20 08/02/20 08/02/20 13:15 14:40 14:53 WBC RBC Hgb Hct MCV MCH MCHC RDW Plt Count Seg Neutrophils % VBG pH 7.35 VBG pCO2 42.7 VBG HCO3 22.8 VBG Base Excess -2.8 Sodium Potassium Chloride Carbon Dioxide Anion Gap BUN Creatinine Est GFR ( Amer) Glucose Lactic Acid 1.4 Calcium Total Bilirubin AST Alkaline Phosphatase Total Protein Albumin Urine Color YELLOW Urine Appearance SLIGHTLY-CLOUDY Urine pH 5.0 Ur Specific [place] 1.015 Urine Protein 30 H Urine Glucose (UA) NEGATIVE Urine Ketones NEGATIVE Urine Blood MODERATE H Urine Nitrite NEGATIVE Ur Leukocyte Esterase NEGATIVE Urine WBC (Auto) 2 Urine RBC (Auto) 7 08/02/20 11:40 Troponin I 0.088 NT-Pro-B Natriuret Pep 1520 H Impressions: Chest X-Ray 08/02/20 12:40 IMPRESSION: In the appropriate clinical setting, findings are consistent with left lung base multifocal pneumonia. Head CT 08/02/20 12:48 IMPRESSION: NO ACUTE INTRACRANIAL FINDINGS. EVIDENCE OF ACUTE STROKE: NO. Assessment and Plan - Diagnosis (1) Sepsis Qualifiers: Sepsis type: sepsis due to unspecified organism Sepsis acute organ dysfunction status: with acute organ dysfunction Severe sepsis acute organ dysfunction type: acute renal failure Acute renal failure type: unspecified Severe sepsis shock status: without septic shock Qualified Code(s): A41.9 - Sepsis, unspecified organism; R65.20 - Severe sepsis without septic shock; N17.9 - Acute kidney failure, unspecified Is this a current diagnosis for this admission?: Yes (2) EDUARD (acute kidney injury) Is this a current diagnosis for this admission?: Yes (3) Pneumonia Qualifiers: Pneumonia type: due to unspecified organism Laterality: left Lung location: lower lobe of lung Qualified Code(s): J18.9 - Pneumonia, unspecified organism Is this a current diagnosis for this admission?: Yes (4) COPD (chronic obstructive pulmonary disease) Qualifiers: COPD type: emphysema Emphysema type: centrilobular Qualified Code(s): J43.2 - Centrilobular emphysema Is this a current diagnosis for this admission?: Yes (5) CAD (coronary artery disease) Qualifiers: Coronary Disease-Associated Artery/Lesion type: [place] artery [place] vs. transplanted heart: [place] heart Associated angina: without angina Qualified Code(s): I25.10 - Atherosclerotic heart disease of [place] coronary artery without angina pectoris Is this a current diagnosis for this admission?: Yes - Plan Summary Summary: We will put him on Rocephin and Zithromax. We will give him some IV fluids. We will monitor the trend in his labs, especially his renal function. He looks very stable at this time. They put him on oxygen in the ER but he was not dyspneic at all and he smoked heavily for many years and has some clubbing of his digits so it may be difficult to get a good pulse oximetry in that regard. ER swabbed him for COVID so we will follow-up on that. - Time Time Spent with patient: 35 or more minutes Anticipated Discharge Disposition: Home, Self Care Anticipated Discharge Timeframe: within 72 hours - Inpatient Certification Based on my medical assessment, after consideration of the patient's comorbidities, presenting symptoms, or acuity I expect that the services needed warrant INPATIENT care.: Yes I certify that my determination is in accordance with my understanding of Medicare's requirements for reasonable and necessary INPATIENT services [42 CFR 412.3e].: Yes Medical Necessity: Significant Comorbidiites Make Outpatient Treatment Too Risky, Need Close Monitoring Due to Risk of Patient Decompensation, Need For IV Fluids, Need For Continuous Telemetry Monitoring, Need for IV Antibiotics, Risk of Complication if Not Cared For in Hospital
--- NOTE | 2020-08-02 17:47 | EKG REPORT ---
SEVERITY:- ABNORMAL ECG - SINUS TACHYCARDIA LVH WITH SECONDARY REPOL ABNRM : Confirmed by: Katharina Espinoza MD 02-Aug-2020 17:46:15
[2020-08-02] MEDS: RINGERS SOLUTION,LACTATED 1,000 ML IV PRN ×2 (22:00→23:15)
[2020-08-02] MEDS: HEPARIN SOD (PORCINE) 5,000 UNIT/ML 1 ML VIAL SUBCUT SCH (23:14)
[2020-08-02] MEDS ORDERED: METOPROLOL TARTRATE 25 MG TABLET PO ONE (23:15)
[2020-08-02] MEDS ORDERED: SIMVASTATIN 40 MG TABLET PO ONE (23:15)
[2020-08-03 05:06] LABS: HEMATOCRIT 34.3 % (37.9-51.0); HEMOGLOBIN 11.8 g/dL (13.5-17.0); MEAN CORPUSCULAR HEMOGLOBIN 28.9 pg (27.0-33.4); MEAN CORPUSCULAR HGB CONC 34.4 g/dL (32.0-36.0); MEAN CORPUSCULAR VOLUME 84 fl (80-97); PLATELET COUNT 198 10^3/uL (150-450); RED BLOOD COUNT 4.09 10^6/uL (4.35-5.55); RED CELL DISTRIBUTION WIDTH 14.5 % (11.5-14.0); WHITE BLOOD COUNT 13.6 10^3/uL (4.0-10.5)
[2020-08-03 05:19] LABS: ANION GAP 8 (5-19); BLOOD UREA NITROGEN 27 mg/dL (7-20); CALCIUM 8.1 mg/dL (8.4-10.2); CARBON DIOXIDE 24 mmol/L (22-30); CHLORIDE 104 mmol/L (98-107); GLUCOSE 99 mg/dL (75-110)
[2020-08-03] MEDS: HEPARIN SOD (PORCINE) 5,000 UNIT/ML 1 ML VIAL SUBCUT SCH ×3 (05:54→21:35)
--- NOTE | 2020-08-03 10:07 | PDOC PROGRESS REPORT ---
Subjective Progress Note for:: 08/03/20 Subjective:: 74-year-old male with past medical history of COPD, CAD, presented to ED complaining of generalized weakness and fatigue and shortness of breath, endorses history of recent travel to [place], in ED was noted to be hypotensive, febrile and hypoxic. 08/03/2020. No acute events overnight. Comfortably resting in bed no apparent distress, on supplemental oxygen, alert and oriented x3 cooperative with physical examination, denies any fever, chills, nausea, vomiting, diarrhea, constipation or any urinary symptoms. Fatigue and lethargy improving compared to admission, pending COVID-19 resolved. Currently on empiric IV antibiotics. Reason For Visit: SEPSIS, CAP, EDUARD Physical Exam Vital Signs: Temp Pulse Resp BP Pulse Ox 99.9 F 95 18 105/71 97 08/03/20 03:04 08/03/20 07:00 08/03/20 03:04 08/03/20 03:04 08/03/20 03:33 Intake & Output 08/02/20 08/03/20 08/04/20 06:59 06:59 06:59 Intake Total 1410 Output Total 600 Balance 810 Weight 80.1 kg General appearance: PRESENT: no acute distress, obese, well-developed, well- nourished Head exam: PRESENT: atraumatic, normocephalic Respiratory exam: PRESENT: clear to auscultation sanjeev. ABSENT: rales, rhonchi, wheezes Cardiovascular exam: PRESENT: RRR. ABSENT: diastolic murmur, rubs, systolic murmur GI/Abdominal exam: PRESENT: normal bowel sounds, soft. ABSENT: distended, guarding, mass, organolmegaly, rebound, tenderness Extremities exam: PRESENT: full ROM. ABSENT: calf tenderness, clubbing, pedal edema Neurological exam: PRESENT: alert, awake, oriented to person, oriented to place, oriented to time, oriented to situation, CN II-XII grossly intact. ABSENT: motor sensory deficit Results Laboratory Results: 08/03/20 04:23 08/03/20 04:23 08/02/20 08/02/20 08/02/20 11:40 11:40 12:54 WBC 15.6 H RBC 4.71 Hgb 13.7 Hct 39.3 MCV 84 MCH 29.2 MCHC 34.9 RDW 14.7 H Plt Count 244 Seg Neutrophils % Not Reportable VBG pH VBG pCO2 VBG HCO3 VBG Base Excess Sodium 137.2 Potassium 3.9 Chloride 101 Carbon Dioxide 22 Anion Gap 14 BUN 29 H Creatinine 1.96 H Est GFR ( Amer) 40 L Glucose 109 Lactic Acid 1.4 Calcium 8.5 Total Bilirubin 1.1 AST 42 Alkaline Phosphatase 56 Total Protein 7.3 Albumin 4.3 Urine Color Urine Appearance Urine pH Ur Specific [place] Urine Protein Urine Glucose (UA) Urine Ketones Urine Blood Urine Nitrite Ur Leukocyte Esterase Urine WBC (Auto) Urine RBC (Auto) 08/02/20 08/02/20 08/02/20 13:15 14:40 14:53 WBC RBC Hgb Hct MCV MCH MCHC RDW Plt Count Seg Neutrophils % VBG pH 7.35 VBG pCO2 42.7 VBG HCO3 22.8 VBG Base Excess -2.8 Sodium Potassium Chloride Carbon Dioxide Anion Gap BUN Creatinine Est GFR ( Amer) Glucose Lactic Acid 1.4 Calcium Total Bilirubin AST Alkaline Phosphatase Total Protein Albumin Urine Color YELLOW Urine Appearance SLIGHTLY-CLOUDY Urine pH 5.0 Ur Specific [place] 1.015 Urine Protein 30 H Urine Glucose (UA) NEGATIVE Urine Ketones NEGATIVE Urine Blood MODERATE H Urine Nitrite NEGATIVE Ur Leukocyte Esterase NEGATIVE Urine WBC (Auto) 2 Urine RBC (Auto) 7 08/03/20 08/03/20 04:23 04:23 WBC 13.6 H RBC 4.09 L Hgb 11.8 L Hct 34.3 L MCV 84 MCH 28.9 MCHC 34.4 RDW 14.5 H Plt Count 198 Seg Neutrophils % VBG pH VBG pCO2 VBG HCO3 VBG Base Excess Sodium 135.7 L Potassium 4.0 Chloride 104 Carbon Dioxide 24 Anion Gap 8 BUN 27 H Creatinine 1.59 H Est GFR ( Amer) 51 L Glucose 99 Lactic Acid Calcium 8.1 L Total Bilirubin AST Alkaline Phosphatase Total Protein Albumin Urine Color Urine Appearance Urine pH Ur Specific [place] Urine Protein Urine Glucose (UA) Urine Ketones Urine Blood Urine Nitrite Ur Leukocyte Esterase Urine WBC (Auto) Urine RBC (Auto) 08/02/20 08/03/20 11:40 04:23 Creatine Kinase 588 H Troponin I 0.088 NT-Pro-B Natriuret Pep 1520 H Impressions: Chest X-Ray 08/02/20 12:40 IMPRESSION: In the appropriate clinical setting, findings are consistent with left lung base multifocal pneumonia. Head CT 08/02/20 12:48 IMPRESSION: NO ACUTE INTRACRANIAL FINDINGS. EVIDENCE OF ACUTE STROKE: NO. Assessment and Plan - Diagnosis (1) Acute respiratory failure with hypoxia Is this a current diagnosis for this admission?: Yes Plan: Likely due to community-acquired pneumonia caused by gram-positives including strep pneumonia, COVID-19 infection is also possibility. Chest x-ray positive for left lung base multifocal pneumonia. Presented with SPO2 of 91. Temperature 99.8. WBC 15.6. Leukocytosis trending down, afebrile, SPO2 WNL on 2 L nasal cannula. Blood and sputum cultures no growth so far. Day 2 IV antibiotics. Day 2 IV azithromycin. Day 2 IV ceftriaxone. Received 1 dose of IV levofloxacin in ED. Day 1 p.o. dexamethasone. Continue empiric broad-spectrum IV antibiotics, p.o. dexamethasone, zinc sulfate, vitamin C, duo nebs, supplemental oxygen, PRN BiPAP, pulmonary toileting, flutter valve, incentive spirometry, LABA, LABA, ICS. Follow-up sputum and blood culture. (2) Acute kidney injury superimposed on CKD Is this a current diagnosis for this admission?: Yes Plan: Prerenal most likely due to low p.o. intake. Baseline creatinine 1.6. Improving. Presented with creatinine of 1.92. Continue cautious volume resuscitation guided by volume status, avoid nephrotoxic meds. (3) CAD (coronary artery disease) Qualifiers: Coronary Disease-Associated Artery/Lesion type: [place] artery [place] vs. transplanted heart: [place] heart Associated angina: without angina Qualified Code(s): I25.10 - Atherosclerotic heart disease of [place] coronary artery without angina pectoris Is this a current diagnosis for this admission?: Yes Plan: Denies any anginal symptoms, mildly elevated troponin of 0.088 likely due to demand mismatch in the setting of CKD, no acute EKG changes. Continue antiplatelets, beta-blockers, ARB, statins. Trend troponins, if trending up we will consult cardiology. (4) COPD (chronic obstructive pulmonary disease) Qualifiers: COPD type: emphysema Emphysema type: centrilobular Qualified Code(s): J43.2 - Centrilobular emphysema Is this a current diagnosis for this admission?: Yes Plan: History of non-oxygen dependent COPD. Continue supplemental oxygen, LABA, LABA, ICS. Outpatient PCP and pulmonology follow-up. (5) Pneumonia Qualifiers: Pneumonia type: due to unspecified organism Laterality: left Lung location: lower lobe of lung Qualified Code(s): J18.9 - Pneumonia, unspecified organism Is this a current diagnosis for this admission?: Yes Plan: Plan as per #1. (6) Sepsis Qualifiers: Sepsis type: sepsis due to unspecified organism Sepsis acute organ dysfunction status: with acute organ dysfunction Severe sepsis acute organ dysfunction type: acute renal failure Acute renal failure type: unspecified Severe sepsis shock status: without septic shock Qualified Code(s): A41.9 - Sepsis, unspecified organism; R65.20 - Severe sepsis without septic shock; N17.9 - Acute kidney failure, unspecified Is this a current diagnosis for this admission?: Yes Plan: Likely due to underlying infectious process. Resolved. Vitals WNL. Continue empiric IV antibiotics, follow-up sputum and blood culture. Plan as per #1. - Plan Summary Summary: We will put him on Rocephin and Zithromax. We will give him some IV fluids. We will monitor the trend in his labs, especially his renal function. He looks very stable at this time. They put him on oxygen in the ER but he was not dyspneic at all and he smoked heavily for many years and has some clubbing of his digits so it may be difficult to get a good pulse oximetry in that regard. ER swabbed him for COVID so we will follow-up on that. - Time Time Spent with patient: 35 or more minutes Medications reviewed and adjusted accordingly: Yes Anticipated Discharge Disposition: Home, Self Care Anticipated Discharge Timeframe: within 72 hours
[2020-08-03] MEDS ORDERED: NORMAL SALINE 1000 ML 1,000 ML IV PRN (10:09)
[2020-08-03] MEDS: CHOLECALCIFEROL (D3) 1,000 UNIT (25 MCG) TABLET PO SCH (10:09)
[2020-08-03] MEDS: ASCORBIC ACID 500 MG TABLET PO SCH (10:09)
[2020-08-03] MEDS: MONTELUKAST SODIUM 10 MG TABLET PO SCH (10:09)
[2020-08-03] MEDS: ASPIRIN 81 MG TABLET, ENT COATED PO SCH (10:09)
[2020-08-03] MEDS: CEFTRIAXONE 1 GM/D5W RTU 1 GM/50 ML RTUPB IV SCH (10:10)
[2020-08-03] MEDS: AZITHROMYCIN 500 MG in DEXTROSE 5%-WATER 250 ML IV SCH (10:10)
[2020-08-03] MEDS: FLUTICASONE/UMECLIDIN/VILANTER 100-62.5-25 MCG/DOSE IH SCH (10:11)
[2020-08-03] MEDS: DEXAMETHASONE 4 MG TABLET PO SCH ×2 (17:09→21:35)
[2020-08-03] MEDS ORDERED: METOPROLOL TARTRATE PF/INJ 5 MG/5 ML SDV IV PRN (18:13)
[2020-08-03] MEDS: METOPROLOL TARTRATE 25 MG TABLET PO SCH ×2 (21:31→21:35)
[2020-08-03] MEDS: SIMVASTATIN 40 MG TABLET PO SCH (21:34)
[2020-08-04] MEDS: DEXAMETHASONE 4 MG TABLET PO SCH ×3 (05:28→21:37)
[2020-08-04] MEDS: HEPARIN SOD (PORCINE) 5,000 UNIT/ML 1 ML VIAL SUBCUT SCH ×2 (05:28→13:39)
[2020-08-04] MEDS ORDERED: INFLUENZA QUAD (6MOS+) 2020-21 VAC 0.5 ML SYR IM ONE (08:00)
[2020-08-04 08:29] LABS: ABSOLUTE LYMPHOCYTES (AUTO) 0.5 10^3/uL (0.5-4.7); ABSOLUTE MONOCYTES (AUTO) 0.4 10^3/uL (0.1-1.4); ABSOLUTE NEUT (AUTO) 6.1 10^3/uL (1.7-8.2); BASOPHILS % (AUTO) 0.1 % (0-2); HEMATOCRIT 38.7 % (37.9-51.0); HEMOGLOBIN 12.9 g/dL (13.5-17.0); LYMPHOCYTES % (AUTO) 7.4 % (13-45); MEAN CORPUSCULAR HEMOGLOBIN 28.3 pg (27.0-33.4); MEAN CORPUSCULAR HGB CONC 33.5 g/dL (32.0-36.0); MEAN CORPUSCULAR VOLUME 85 fl (80-97); MONOCYTES % (AUTO) 5.3 % (3-13); PLATELET COUNT 216 10^3/uL (150-450); RED BLOOD COUNT 4.57 10^6/uL (4.35-5.55); RED CELL DISTRIBUTION WIDTH 14.5 % (11.5-14.0); SEGMENTED NEUTROPHILS % (AUTO) 87.2 % (42-78); TOTAL CELLS COUNTED % (AUTO) 100 %
[2020-08-04 08:46] LABS: ALBUMIN 3.7 g/dL (3.5-5.0); ALKALINE PHOSPHATASE 55 U/L (38-126); ANION GAP 11 (5-19); ASPARTATE AMINO TRANSFERASE 39 U/L (17-59); BILIRUBIN,DIRECT 0.3 mg/dL (0.0-0.4); BILIRUBIN,TOTAL 0.7 mg/dL (0.2-1.3); BLOOD UREA NITROGEN 22 mg/dL (7-20); CALCIUM 8.7 mg/dL (8.4-10.2); CARBON DIOXIDE 25 mmol/L (22-30); CHLORIDE 103 mmol/L (98-107); GLUCOSE 136 mg/dL (75-110); POTASSIUM 4.8 mmol/L (3.6-5.0); TOTAL PROTEIN 6.4 g/dL (6.3-8.2)
[2020-08-04] MEDS: ASCORBIC ACID 500 MG TABLET PO SCH (09:54)
[2020-08-04] MEDS: CHOLECALCIFEROL (D3) 1,000 UNIT (25 MCG) TABLET PO SCH (09:54)
[2020-08-04] MEDS: ASPIRIN 81 MG TABLET, ENT COATED PO SCH (09:54)
[2020-08-04] MEDS: MONTELUKAST SODIUM 10 MG TABLET PO SCH (09:55)
[2020-08-04] MEDS: METOPROLOL TARTRATE 25 MG TABLET PO SCH ×2 (09:55→21:37)
[2020-08-04] MEDS: CEFTRIAXONE 1 GM/D5W RTU 1 GM/50 ML RTUPB IV SCH (09:56)
[2020-08-04] MEDS: FLUTICASONE/UMECLIDIN/VILANTER 100-62.5-25 MCG/DOSE IH SCH (09:56)
[2020-08-04] MEDS: AZITHROMYCIN 500 MG in DEXTROSE 5%-WATER 250 ML IV SCH (10:52)
[2020-08-04] MEDS ORDERED: REMDESIVIR (EUA) 200 MG in NORMAL SALINE 250 ML IV ONE (12:00)
--- NOTE | 2020-08-04 15:56 | PDOC PROGRESS REPORT ---
Subjective Progress Note for:: 08/04/20 Subjective:: 74-year-old male with past medical history of COPD, CAD, presented to ED complaining of generalized weakness and fatigue and shortness of breath, endorses history of recent travel to [place], in ED was noted to be hypotensive, febrile and hypoxic. 08/03/2020. No acute events overnight. Comfortably resting in bed no apparent distress, on supplemental oxygen, alert and oriented x3 cooperative with physical examination, denies any fever, chills, nausea, vomiting, diarrhea, constipation or any urinary symptoms. Fatigue and lethargy improving compared to admission, pending COVID-19 resolved. Currently on empiric IV antibiotics. 08/04/2020. No acute events overnight. Patient has several positive for COVID- 19, aside from generalized fatigue and weakness patient denies any fever, chills, nausea, vomiting, diarrhea, constipation or any urinary symptoms. SPO2 WNL on 2 L nasal cannula. Possible discharge home tomorrow. Reason For Visit: SEPSIS, CAP, EDUARD Physical Exam Vital Signs: Temp Pulse Resp BP Pulse Ox 98.1 F 85 19 137/64 H 96 08/04/20 10:49 08/04/20 14:00 08/04/20 10:49 08/04/20 10:49 08/04/20 10:49 Intake & Output 08/03/20 08/04/20 08/05/20 06:59 06:59 06:59 Intake Total 1410 1560 550 Output Total 600 2300 Balance 810 -740 550 Weight 80.1 kg 82.4 kg General appearance: PRESENT: no acute distress, obese, well-developed, well- nourished Head exam: PRESENT: atraumatic, normocephalic Respiratory exam: PRESENT: clear to auscultation sanjeev. ABSENT: rales, rhonchi, wheezes Cardiovascular exam: PRESENT: RRR. ABSENT: diastolic murmur, rubs, systolic murmur GI/Abdominal exam: PRESENT: normal bowel sounds, soft. ABSENT: distended, guarding, mass, organolmegaly, rebound, tenderness Extremities exam: PRESENT: full ROM. ABSENT: calf tenderness, clubbing, pedal edema Neurological exam: PRESENT: alert, awake, oriented to person, oriented to place, oriented to time, oriented to situation, CN II-XII grossly intact. ABSENT: motor sensory deficit Results Laboratory Results: 08/04/20 06:19 08/04/20 06:19 08/04/20 08/04/20 08/04/20 06:19 06:19 06:19 WBC Cancelled 7.0 RBC Cancelled 4.57 Hgb Cancelled 12.9 L Hct Cancelled 38.7 MCV Cancelled 85 MCH Cancelled 28.3 MCHC Cancelled 33.5 RDW Cancelled 14.5 H Plt Count Cancelled 216 Seg Neutrophils % 87.2 H Sodium Cancelled Potassium Cancelled Chloride Cancelled Carbon Dioxide Cancelled Anion Gap Cancelled BUN Cancelled Creatinine Cancelled Est GFR ( Amer) Cancelled Est GFR (Non-Af Amer) Cancelled Glucose Cancelled Calcium Cancelled Total Bilirubin AST Alkaline Phosphatase Total Protein Albumin 08/04/20 06:19 WBC RBC Hgb Hct MCV MCH MCHC RDW Plt Count Seg Neutrophils % Sodium 139.3 Potassium 4.8 Chloride 103 Carbon Dioxide 25 Anion Gap 11 BUN 22 H Creatinine 1.28 H Est GFR ( Amer) > 60 Est GFR (Non-Af Amer) Glucose 136 H Calcium 8.7 Total Bilirubin 0.7 AST 39 Alkaline Phosphatase 55 Total Protein 6.4 Albumin 3.7 08/02/20 14:40 Clean Catch Midstream Urine Culture - Final NO GROWTH 2 DAYS 08/02/20 08/03/20 08/03/20 11:40 04:23 10:50 Creatine Kinase 588 H Troponin I 0.088 0.075 NT-Pro-B Natriuret Pep 1520 H Impressions: Chest X-Ray 08/02/20 12:40 IMPRESSION: In the appropriate clinical setting, findings are consistent with left lung base multifocal pneumonia. Head CT 08/02/20 12:48 IMPRESSION: NO ACUTE INTRACRANIAL FINDINGS. EVIDENCE OF ACUTE STROKE: NO. Assessment and Plan - Diagnosis (1) Acute respiratory failure with hypoxia Is this a current diagnosis for this admission?: Yes Plan: Due to COVID-19 pneumonia and possible superimposed bacterial pneumonia caused by gram-positives including strep pneumonia. COVID-19 serology positive. Chest x-ray positive for left lung base multifocal pneumonia. Presented with SPO2 of 91. Temperature 99.8. WBC 15.6. WBC WNL, afebrile, SPO2 WNL on 2 L nasal cannula. Blood and sputum cultures no growth so far. Day 3 IV antibiotics. Day 3 IV azithromycin. Day 3 IV ceftriaxone. Received 1 dose of IV levofloxacin in ED. Day 1 p.o. dexamethasone. Day 1 IV remdisivir. Continue empiric broad-spectrum IV antibiotics, p.o. dexamethasone, zinc sulfate, vitamin C, duo nebs, supplemental oxygen, PRN BiPAP, pulmonary toileting, flutter valve, incentive spirometry, LABA, LABA, ICS. Follow-up sputum and blood culture. (2) Pneumonia due to COVID-19 virus Is this a current diagnosis for this admission?: Yes Plan: As per #1. (3) Acute kidney injury superimposed on CKD Is this a current diagnosis for this admission?: Yes Plan: Prerenal most likely due to low p.o. intake. Baseline creatinine 1.6. Improving. Presented with creatinine of 1.92. Continue cautious volume resuscitation guided by volume status, avoid nephrotoxic meds. (4) CAD (coronary artery disease) Qualifiers: Coronary Disease-Associated Artery/Lesion type: [place] artery [place] vs. transplanted heart: [place] heart Associated angina: without angina Qualified Code(s): I25.10 - Atherosclerotic heart disease of [place] coronary artery without angina pectoris Is this a current diagnosis for this admission?: Yes Plan: Denies any anginal symptoms, mildly elevated troponin of 0.088 likely due to demand mismatch in the setting of CKD, no acute EKG changes. Continue antiplatelets, beta-blockers, ARB, statins. Trend troponins, if trending up we will consult cardiology. (5) COPD (chronic obstructive pulmonary disease) Qualifiers: COPD type: emphysema Emphysema type: centrilobular Qualified Code(s): J4 3.2 - Centrilobular emphysema Is this a current diagnosis for this admission?: Yes Plan: History of non-oxygen dependent COPD. Continue supplemental oxygen, LABA, LABA, ICS. Outpatient PCP and pulmonology follow-up. (6) Sepsis Qualifiers: Sepsis type: sepsis due to unspecified organism Sepsis acute organ dysfunction status: with acute organ dysfunction Severe sepsis acute organ dysfunction type: acute renal failure Acute renal failure type: unspecified Severe sepsis shock status: without septic shock Qualified Code(s): A41.9 - Sepsis, unspecified organism; R65.20 - Severe sepsis without septic shock; N17.9 - Acute kidney failure, unspecified Is this a current diagnosis for this admission?: Yes Plan: Likely due to underlying infectious process. Resolved. Vitals WNL. Continue empiric IV antibiotics, follow-up sputum and blood culture. Plan as per #1. - Plan Summary Summary: We will put him on Rocephin and Zithromax. We will give him some IV fluids. We will monitor the trend in his labs, especially his renal function. He looks very stable at this time. They put him on oxygen in the ER but he was not dyspneic at all and he smoked heavily for many years and has some clubbing of his digits so it may be difficult to get a good pulse oximetry in that regard. ER swabbed him for COVID so we will follow-up on that. - Time Time Spent with patient: 35 or more minutes Medications reviewed and adjusted accordingly: Yes Anticipated Discharge Disposition: Home with Home Health Anticipated Discharge Timeframe: within 72 hours
[2020-08-04] MEDS: SIMVASTATIN 40 MG TABLET PO SCH (21:37)
[2020-08-04] MEDS: ENOXAPARIN SODIUM INJ 80 MG/0.8 ML DISP.SYRIN SUBCUT SCH (21:38)
[2020-08-05] MEDS: DEXAMETHASONE 4 MG TABLET PO SCH ×3 (05:10→21:25)
[2020-08-05 05:20] LABS: HEMATOCRIT 37.1 % (37.9-51.0); HEMOGLOBIN 12.8 g/dL (13.5-17.0); MEAN CORPUSCULAR HEMOGLOBIN 28.6 pg (27.0-33.4); MEAN CORPUSCULAR HGB CONC 34.4 g/dL (32.0-36.0); MEAN CORPUSCULAR VOLUME 83 fl (80-97); PLATELET COUNT 260 10^3/uL (150-450); RED BLOOD COUNT 4.47 10^6/uL (4.35-5.55); RED CELL DISTRIBUTION WIDTH 14.3 % (11.5-14.0)
[2020-08-05 05:26] LABS: INTERNATIONAL RATION (INR) 1.04; PROTHROMBIN TIME 13.8 SEC (11.4-15.4)
[2020-08-05 05:43] LABS: ANION GAP 12 (5-19); BLOOD UREA NITROGEN 33 mg/dL (7-20); CALCIUM 8.8 mg/dL (8.4-10.2); CARBON DIOXIDE 22 mmol/L (22-30); CHLORIDE 105 mmol/L (98-107); GLUCOSE 119 mg/dL (75-110); POTASSIUM 4.5 mmol/L (3.6-5.0)
[2020-08-05 07:08] LABS: APPEARANCE,URINE CLEAR; BILIRUBIN,URINE NEGATIVE (NEGATIVE); COLOR,URINE YELLOW; GLUCOSE, URINE NEGATIVE (NEGATIVE); KETONES,URINE NEGATIVE (NEGATIVE); LEUKOCYTE ESTERASE,URINE NEGATIVE (NEGATIVE); NITRITE,URINE NEGATIVE (NEGATIVE); PROTEIN,URINE 30 mg/dL (NEGATIVE); URINE SPECIFIC GRAVITY 1.018; UROBILINOGEN,URINE NEGATIVE mg/dL (<2.0)
[2020-08-05] MEDS: ENOXAPARIN SODIUM INJ 80 MG/0.8 ML DISP.SYRIN SUBCUT SCH ×2 (09:32→21:25)
[2020-08-05] MEDS: MONTELUKAST SODIUM 10 MG TABLET PO SCH (09:32)
[2020-08-05] MEDS: METOPROLOL TARTRATE 25 MG TABLET PO SCH ×2 (09:32→21:29)
[2020-08-05] MEDS: ASCORBIC ACID 500 MG TABLET PO SCH (09:33)
[2020-08-05] MEDS: FLUTICASONE/UMECLIDIN/VILANTER 100-62.5-25 MCG/DOSE IH SCH (09:33)
[2020-08-05] MEDS: ASPIRIN 81 MG TABLET, ENT COATED PO SCH (09:33)
[2020-08-05] MEDS: CHOLECALCIFEROL (D3) 1,000 UNIT (25 MCG) TABLET PO SCH (09:33)
[2020-08-05] MEDS: CEFTRIAXONE 1 GM/D5W RTU 1 GM/50 ML RTUPB IV SCH (09:34)
[2020-08-05] MEDS: AZITHROMYCIN 500 MG in DEXTROSE 5%-WATER 250 ML IV SCH (10:50)
[2020-08-05] MEDS: REMDESIVIR (EUA) 100 MG in NORMAL SALINE 250 ML IV SCH (12:07)
--- NOTE | 2020-08-05 12:22 | PDOC PROGRESS REPORT ---
Subjective Progress Note for:: 08/05/20 Subjective:: 74-year-old male with past medical history of COPD, CAD, presented to ED complaining of generalized weakness and fatigue and shortness of breath, endorses history of recent travel to [place], in ED was noted to be hypotensive, febrile and hypoxic. 08/03/2020. No acute events overnight. Comfortably resting in bed no apparent distress, on supplemental oxygen, alert and oriented x3 cooperative with physical examination, denies any fever, chills, nausea, vomiting, diarrhea, constipation or any urinary symptoms. Fatigue and lethargy improving compared to admission, pending COVID-19 resolved. Currently on empiric IV antibiotics. 08/04/2020. No acute events overnight. Patient has several positive for COVID- 19, aside from generalized fatigue and weakness patient denies any fever, chills, nausea, vomiting, diarrhea, constipation or any urinary symptoms. SPO2 WNL on 2 L nasal cannula. Possible discharge home tomorrow. 08/05/2020. No acute events overnight. Patient comfortably resting in bed no apparent distress, denies any fever, chills, nausea, vomiting, diarrhea, constipation or any urinary symptoms. SPO2 WNL on RA, patient is on day 2 out of 4 Rimdesivir. Reason For Visit: SEPSIS, CAP, EDUARD Physical Exam Vital Signs: Temp Pulse Resp BP Pulse Ox 97.9 F 73 19 138/66 H 95 08/05/20 10:00 08/05/20 07:22 08/05/20 07:22 08/05/20 07:22 08/05/20 07:22 Intake & Output 08/04/20 08/05/20 08/06/20 06:59 06:59 06:59 Intake Total 1560 1170 Output Total 2300 Balance -740 1170 Weight 82.4 kg 86 kg General appearance: PRESENT: no acute distress, obese, well-developed, well- nourished Head exam: PRESENT: atraumatic, normocephalic Respiratory exam: PRESENT: clear to auscultation sanjeev. ABSENT: rales, rhonchi, wheezes Cardiovascular exam: PRESENT: RRR. ABSENT: diastolic murmur, rubs, systolic murmur GI/Abdominal exam: PRESENT: normal bowel sounds, soft. ABSENT: distended, guarding, mass, organolmegaly, rebound, tenderness Neurological exam: PRESENT: alert, awake, oriented to person, oriented to place, oriented to time, oriented to situation, CN II-XII grossly intact. ABSENT: motor sensory deficit Results Laboratory Results: 08/05/20 04:32 08/05/20 04:32 08/05/20 08/05/20 08/05/20 04:32 04:32 06:41 WBC 13.0 H RBC 4.47 Hgb 12.8 L Hct 37.1 L MCV 83 MCH 28.6 MCHC 34.4 RDW 14.3 H Plt Count 260 Sodium 138.7 Potassium 4.5 Chloride 105 Carbon Dioxide 22 Anion Gap 12 BUN 33 H Creatinine 1.34 H Est GFR ( Amer) > 60 Glucose 119 H Calcium 8.8 Magnesium 1.8 Urine Color YELLOW Urine Appearance CLEAR Urine pH 5.0 Ur Specific [place] 1.018 Urine Protein 30 H Urine Glucose (UA) NEGATIVE Urine Ketones NEGATIVE Urine Blood NEGATIVE Urine Nitrite NEGATIVE Ur Leukocyte Esterase NEGATIVE Urine WBC (Auto) 1 Urine RBC (Auto) 1 08/02/20 14:40 Clean Catch Midstream Urine Culture - Final NO GROWTH 2 DAYS 08/02/20 08/03/20 08/03/20 11:40 04:23 10:50 Creatine Kinase 588 H Troponin I 0.088 0.075 NT-Pro-B Natriuret Pep 1520 H Impressions: Chest X-Ray 08/02/20 12:40 IMPRESSION: In the appropriate clinical setting, findings are consistent with left lung base multifocal pneumonia. Head CT 08/02/20 12:48 IMPRESSION: NO ACUTE INTRACRANIAL FINDINGS. EVIDENCE OF ACUTE STROKE: NO. Assessment and Plan - Diagnosis (1) Acute respiratory failure with hypoxia Is this a current diagnosis for this admission?: Yes Plan: Much improved. SPO2 WNL on RA. Due to COVID-19 pneumonia and possible superimposed bacterial pneumonia caused by gram-positives including strep pneumonia. COVID-19 serology positive. On admission presented with chest x-ray positive for left lung base multifocal pneumonia, presented with SPO2 of 91. WBC WNL, afebrile, SPO2 WNL on 2 L nasal cannula. Blood and sputum cultures no growth so far. Day 4 IV antibiotics. Day 4 IV azithromycin. Day 4 IV ceftriaxone. Received 1 dose of IV levofloxacin in ED. Day 1 p.o. dexamethasone. Day 2 IV remdisivir. Continue empiric broad-spectrum IV antibiotics, p.o. dexamethasone, zinc sulfate, vitamin C, duo nebs, supplemental oxygen, PRN BiPAP, pulmonary toileting, flutter valve, incentive spirometry, LABA, LABA, ICS. Follow-up sputum and blood culture. (2) Pneumonia due to COVID-19 virus Is this a current diagnosis for this admission?: Yes Plan: As per #1. (3) Acute kidney injury superimposed on CKD Is this a current diagnosis for this admission?: Yes Plan: Prerenal most likely due to low p.o. intake. Baseline creatinine 1.6. Improving. Presented with creatinine of 1.92. Continue cautious volume resuscitation guided by volume status, avoid nephrotoxic meds. (4) CAD (coronary artery disease) Qualifiers: Coronary Disease-Associated Artery/Lesion type: [place] artery [place] vs. transplanted heart: [place] heart Associated angina: without angina Qualified Code(s): I25.10 - Atherosclerotic heart disease of [place] coronary artery without angina pectoris Is this a current diagnosis for this admission?: Yes Plan: Denies any anginal symptoms, mildly elevated troponin of 0.088 likely due to demand mismatch in the setting of CKD, no acute EKG changes. Continue antiplatelets, beta-blockers, ARB, statins. Trend troponins, if trending up we will consult cardiology. (5) COPD (chronic obstructive pulmonary disease) Qualifiers: COPD type: emphysema Emphysema type: centrilobular Qualified Code(s): J43.2 - Centrilobular emphysema Is this a current diagnosis for this admission?: Yes Plan: History of non-oxygen dependent COPD. Continue supplemental oxygen, LABA, LABA, ICS. Outpatient PCP and pulmonology follow-up. (6) Sepsis Qualifiers: Sepsis type: sepsis due to unspecified organism Sepsis acute organ dysfunction status: with acute organ dysfunction Severe sepsis acute organ dysfunction type: acute renal failure Acute renal failure type: unspecified Severe sepsis shock status: without septic shock Qualified Code(s): A41.9 - Sepsis, unspecified organism; R65.20 - Severe sepsis without septic shock; N17.9 - Acute kidney failure, unspecified Is this a current diagnosis for this admission?: Yes Plan: Likely due to underlying infectious process. Resolved. Vitals WNL. Continue empiric IV antibiotics, follow-up sputum and blood culture. Plan as per #1. - Plan Summary Summary: We will put him on Rocephin and Zithromax. We will give him some IV fluids. We will monitor the trend in his labs, especially his renal function. He looks very stable at this time. They put him on oxygen in the ER but he was not dyspneic at all and he smoked heavily for many years and has some clubbing of his digits so it may be difficult to get a good pulse oximetry in that regard. ER swabbed him for COVID so we will follow-up on that. - Time Time Spent with patient: 25-34 minutes Medications reviewed and adjusted accordingly: Yes Anticipated Discharge Disposition: Home, Self Care Anticipated Discharge Timeframe: within 48 hours
[2020-08-05] MEDS: SIMVASTATIN 40 MG TABLET PO SCH (21:25)
[2020-08-06] MEDS: DEXAMETHASONE 4 MG TABLET PO SCH ×3 (05:22→21:31)
[2020-08-06 06:54] LABS: ABSOLUTE LYMPHOCYTES (AUTO) 0.8 10^3/uL (0.5-4.7); ABSOLUTE NEUT (AUTO) 9.5 10^3/uL (1.7-8.2); BASOPHILS % (AUTO) 0.1 % (0-2); HEMATOCRIT 38.3 % (37.9-51.0); HEMOGLOBIN 13.2 g/dL (13.5-17.0); LYMPHOCYTES % (AUTO) 7.2 % (13-45); MEAN CORPUSCULAR HEMOGLOBIN 28.9 pg (27.0-33.4); MEAN CORPUSCULAR HGB CONC 34.4 g/dL (32.0-36.0); MEAN CORPUSCULAR VOLUME 84 fl (80-97); MONOCYTES % (AUTO) 8.8 % (3-13); PLATELET COUNT 344 10^3/uL (150-450); RED BLOOD COUNT 4.57 10^6/uL (4.35-5.55); RED CELL DISTRIBUTION WIDTH 14.5 % (11.5-14.0); SEGMENTED NEUTROPHILS % (AUTO) 83.9 % (42-78); TOTAL CELLS COUNTED % (AUTO) 100 %; WHITE BLOOD COUNT 11.3 10^3/uL (4.0-10.5)
[2020-08-06 07:00] LABS: INTERNATIONAL RATION (INR) 1.09; PROTHROMBIN TIME 14.3 SEC (11.4-15.4)
[2020-08-06 07:08] LABS: ALBUMIN 3.5 g/dL (3.5-5.0); ALKALINE PHOSPHATASE 46 U/L (38-126); ANION GAP 11 (5-19); ASPARTATE AMINO TRANSFERASE 37 U/L (17-59); BILIRUBIN,DIRECT 0.3 mg/dL (0.0-0.4); BILIRUBIN,TOTAL 0.4 mg/dL (0.2-1.3); BLOOD UREA NITROGEN 32 mg/dL (7-20); CALCIUM 8.7 mg/dL (8.4-10.2); CARBON DIOXIDE 22 mmol/L (22-30); CHLORIDE 107 mmol/L (98-107); GLUCOSE 112 mg/dL (75-110); POTASSIUM 4.7 mmol/L (3.6-5.0); TOTAL PROTEIN 6.1 g/dL (6.3-8.2)
[2020-08-06] MEDS: CEFTRIAXONE 1 GM/D5W RTU 1 GM/50 ML RTUPB IV SCH (09:02)
[2020-08-06] MEDS: MONTELUKAST SODIUM 10 MG TABLET PO SCH (09:03)
[2020-08-06] MEDS: METOPROLOL TARTRATE 25 MG TABLET PO SCH ×2 (09:03→21:32)
[2020-08-06] MEDS: ENOXAPARIN SODIUM INJ 80 MG/0.8 ML DISP.SYRIN SUBCUT SCH ×2 (09:03→21:31)
[2020-08-06] MEDS: ASPIRIN 81 MG TABLET, ENT COATED PO SCH (09:14)
[2020-08-06] MEDS: FLUTICASONE/UMECLIDIN/VILANTER 100-62.5-25 MCG/DOSE IH SCH (09:15)
[2020-08-06] MEDS: ASCORBIC ACID 500 MG TABLET PO SCH (09:15)
[2020-08-06] MEDS: CHOLECALCIFEROL (D3) 1,000 UNIT (25 MCG) TABLET PO SCH (09:15)
[2020-08-06] MEDS: REMDESIVIR (EUA) 100 MG in NORMAL SALINE 250 ML IV SCH (09:53)
[2020-08-06] MEDS: AZITHROMYCIN 500 MG in DEXTROSE 5%-WATER 250 ML IV SCH (11:18)
--- NOTE | 2020-08-06 15:08 | PDOC PROGRESS REPORT ---
Subjective Progress Note for:: 08/06/20 Subjective:: 74-year-old male with past medical history of COPD, CAD, presented to ED complaining of generalized weakness and fatigue and shortness of breath, endorses history of recent travel to [place], in ED was noted to be hypotensive, febrile and hypoxic. 08/03/2020. No acute events overnight. Comfortably resting in bed no apparent distress, on supplemental oxygen, alert and oriented x3 cooperative with physical examination, denies any fever, chills, nausea, vomiting, diarrhea, constipation or any urinary symptoms. Fatigue and lethargy improving compared to admission, pending COVID-19 resolved. Currently on empiric IV antibiotics. 08/04/2020. No acute events overnight. Patient has several positive for COVID- 19, aside from generalized fatigue and weakness patient denies any fever, chills, nausea, vomiting, diarrhea, constipation or any urinary symptoms. SPO2 WNL on 2 L nasal cannula. Possible discharge home tomorrow. 08/05/2020. No acute events overnight. Patient comfortably resting in bed no apparent distress, denies any fever, chills, nausea, vomiting, diarrhea, constipation or any urinary symptoms. SPO2 WNL on RA, patient is on day 2 out of 4 Rimdesivir. 08/06/2020. No acute events overnight. SPO2 on RA. No apparent distress. Denies any fever, chills, nausea, vomiting. Ambulatory. Having normal bowel and bladder movements. DC home on Saturday once patient receives home dose of Remdesivir. Reason For Visit: SEPSIS, CAP, EDUARD Physical Exam Vital Signs: Temp Pulse Resp BP Pulse Ox 97.7 F 65 18 132/62 H 92 08/06/20 11:06 08/06/20 14:00 08/06/20 11:06 08/06/20 11:06 08/06/20 11:06 Intake & Output 08/05/20 08/06/20 08/07/20 06:59 06:59 06:59 Intake Total 7458 763 2943 Output Total 100 2 Balance 7825 241 6290 Weight 86 kg 85.3 kg General appearance: PRESENT: no acute distress, obese, well-developed, well- nourished Head exam: PRESENT: atraumatic, normocephalic Neck exam: ABSENT: carotid bruit, JVD, lymphadenopathy, thyromegaly Respiratory exam: PRESENT: clear to auscultation sanjeev. ABSENT: rales, rhonchi, wheezes Cardiovascular exam: PRESENT: RRR. ABSENT: diastolic murmur, rubs, systolic murmur GI/Abdominal exam: PRESENT: normal bowel sounds, soft. ABSENT: distended, guarding, mass, organolmegaly, rebound, tenderness Neurological exam: PRESENT: alert, awake, oriented to person, oriented to place, oriented to time, oriented to situation, CN II-XII grossly intact. ABSENT: motor sensory deficit Results Laboratory Results: 08/06/20 06:23 08/06/20 06:23 08/06/20 08/06/20 06:23 06:23 WBC 11.3 H RBC 4.57 Hgb 13.2 L Hct 38.3 MCV 84 MCH 28.9 MCHC 34.4 RDW 14.5 H Plt Count 344 Seg Neutrophils % 83.9 H Sodium 140.0 Potassium 4.7 Chloride 107 Carbon Dioxide 22 Anion Gap 11 BUN 32 H Creatinine 1.27 H Est GFR ( Amer) > 60 Glucose 112 H Calcium 8.7 Magnesium 1.7 Total Bilirubin 0.4 AST 37 Alkaline Phosphatase 46 Total Protein 6.1 L Albumin 3.5 08/02/20 08/03/20 08/03/20 11:40 04:23 10:50 Creatine Kinase 588 H Troponin I 0.088 0.075 NT-Pro-B Natriuret Pep 1520 H Impressions: Chest X-Ray 08/02/20 12:40 IMPRESSION: In the appropriate clinical setting, findings are consistent with left lung base multifocal pneumonia. Head CT 08/02/20 12:48 IMPRESSION: NO ACUTE INTRACRANIAL FINDINGS. EVIDENCE OF ACUTE STROKE: NO. Assessment and Plan - Diagnosis (1) Acute respiratory failure with hypoxia Is this a current diagnosis for this admission?: Yes Plan: Much improved. SPO2 WNL on RA. Due to COVID-19 pneumonia and possible superimposed bacterial pneumonia caused by gram-positives including strep pneumonia. COVID-19 serology positive. On admission presented with chest x-ray positive for left lung base multifocal pneumonia, presented with SPO2 of 91. WBC WNL, afebrile, SPO2 WNL on 2 L nasal cannula. Blood and sputum cultures no growth so far. Day 5 IV antibiotics. Day 5 IV azithromycin. Day 5 IV ceftriaxone. Received 1 dose of IV levofloxacin in ED. Day 2 p.o. dexamethasone. Day 2 IV remdisivir. Continue empiric broad-spectrum IV antibiotics, p.o. dexamethasone, zinc sulfate, vitamin C, duo nebs, supplemental oxygen, PRN BiPAP, pulmonary toileting, flutter valve, incentive spirometry, LABA, LABA, ICS. Follow-up sputum and blood culture. (2) Pneumonia due to COVID-19 virus Is this a current diagnosis for this admission?: Yes Plan: As per #1. (3) Acute kidney injury superimposed on CKD Is this a current diagnosis for this admission?: Yes Plan: Prerenal most likely due to low p.o. intake. Baseline creatinine 1.6. Improving. Presented with creatinine of 1.92. Continue cautious volume resuscitation guided by volume status, avoid nephrotoxic meds. (4) CAD (coronary artery disease) Qualifiers: Coronary Disease-Associated Artery/Lesion type: [place] artery [place] vs. transplanted heart: [place] heart Associated angina: without angina Qualified Code(s): I25.10 - Atherosclerotic heart disease of [place] coronary artery without angina pectoris Is this a current diagnosis for this admission?: Yes Plan: Denies any anginal symptoms, mildly elevated troponin of 0.088 likely due to demand mismatch in the setting of CKD, no acute EKG changes. Continue antiplatelets, beta-blockers, ARB, statins. Trend troponins, if trending up we will consult cardiology. (5) COPD (chronic obstructive pulmonary disease) Qualifiers: COPD type: emphysema Emphysema type: centrilobular Qualified Code(s): J43.2 - Centrilobular emphysema Is this a current diagnosis for this admission?: Yes Plan: History of non-oxygen dependent COPD. Continue supplemental oxygen, LABA, LABA, ICS. Outpatient PCP and pulmonology follow-up. (6) Sepsis Qualifiers: Sepsis type: sepsis due to unspecified organism Sepsis acute organ dysfunction status: with acute organ dysfunction Severe sepsis acute organ dysfunction type: acute renal failure Acute renal failure type: unspecified Severe sepsis shock status: without septic shock Qualified Code(s): A41.9 - Sepsis, unspecified organism; R65.20 - Severe sepsis without septic shock; N17.9 - Acute kidney failure, unspecified Is this a current diagnosis for this admission?: Yes Plan: Likely due to underlying infectious process. Resolved. Vitals WNL. Continue empiric IV antibiotics, follow-up sputum and blood culture. Plan as per #1. - Plan Summary Summary: We will put him on Rocephin and Zithromax. We will give him some IV fluids. We will monitor the trend in his labs, especially his renal function. He looks very stable at this time. They put him on oxygen in the ER but he was not dyspneic at all and he smoked heavily for many years and has some clubbing of his digits so it may be difficult to get a good pulse oximetry in that regard. ER swabbed him for COVID so we will follow-up on that. - Time Time Spent with patient: 25-34 minutes Medications reviewed and adjusted accordingly: Yes Anticipated Discharge Disposition: Home, Self Care Anticipated Discharge Timeframe: within 48 hours
[2020-08-06] MEDS: SIMVASTATIN 40 MG TABLET PO SCH (21:32)
[2020-08-07] MEDS: DEXAMETHASONE 4 MG TABLET PO SCH ×3 (05:42→21:40)
[2020-08-07 06:51] LABS: HEMATOCRIT 37.3 % (37.9-51.0); MEAN CORPUSCULAR HEMOGLOBIN 28.9 pg (27.0-33.4); MEAN CORPUSCULAR HGB CONC 34.9 g/dL (32.0-36.0); MEAN CORPUSCULAR VOLUME 83 fl (80-97); PLATELET COUNT 349 10^3/uL (150-450); RED BLOOD COUNT 4.49 10^6/uL (4.35-5.55); RED CELL DISTRIBUTION WIDTH 14.2 % (11.5-14.0)
[2020-08-07 07:08] LABS: ANION GAP 12 (5-19); BLOOD UREA NITROGEN 31 mg/dL (7-20); CALCIUM 8.4 mg/dL (8.4-10.2); CARBON DIOXIDE 21 mmol/L (22-30); CHLORIDE 106 mmol/L (98-107); GLUCOSE 103 mg/dL (75-110); POTASSIUM 4.6 mmol/L (3.6-5.0)
[2020-08-07 07:35] LABS: ABSOLUTE LYMPHOCYTES# (MANUAL) 1.7 10^3/uL (0.5-4.7); ABSOLUTE MONOCYTES # (MANUAL) 0.7 10^3/uL (0.1-1.4); ANISOCYTOSIS SLIGHT; BAND NEUTROPHILS % (MANUAL) 1 % (3-5); BASOPHILS % (MANUAL) 0 % (0-2); EOSINOPHILS % (MANUAL) 0 % (0-6); HYPERSEGMENTED NEUTROPHILS PRESENT; LYMPHOCYTES % (MANUAL) 16 % (13-45); MONOCYTES % (MANUAL) 9 % (3-13); SEGMENTED NEUTROPHILS % (MAN) 69 % (42-78); TOTAL CELLS COUNTED 100; TOXIC VACUOLATION PRESENT
[2020-08-07 07:37] LABS: BURR CELLS SLIGHT; OVALOCYTES SLIGHT; PLATELET COMMENT ADEQUATE
--- NOTE | 2020-08-07 10:21 | PDOC PROGRESS REPORT ---
Subjective Progress Note for:: 08/07/20 Subjective:: 74-year-old male with past medical history of COPD, CAD, presented to ED complaining of generalized weakness and fatigue and shortness of breath, endorses history of recent travel to [place], in ED was noted to be hypotensive, febrile and hypoxic. 08/03/2020. No acute events overnight. Comfortably resting in bed no apparent distress, on supplemental oxygen, alert and oriented x3 cooperative with physical examination, denies any fever, chills, nausea, vomiting, diarrhea, constipation or any urinary symptoms. Fatigue and lethargy improving compared to admission, pending COVID-19 resolved. Currently on empiric IV antibiotics. 08/04/2020. No acute events overnight. Patient has several positive for COVID- 19, aside from generalized fatigue and weakness patient denies any fever, chills, nausea, vomiting, diarrhea, constipation or any urinary symptoms. SPO2 WNL on 2 L nasal cannula. Possible discharge home tomorrow. 08/05/2020. No acute events overnight. Patient comfortably resting in bed no apparent distress, denies any fever, chills, nausea, vomiting, diarrhea, constipation or any urinary symptoms. SPO2 WNL on RA, patient is on day 2 out of 4 Rimdesivir. 08/06/2020. No acute events overnight. SPO2 on RA. No apparent distress. Denies any fever, chills, nausea, vomiting. Ambulatory. Having normal bowel and bladder movements. DC home on Saturday once patient receives home dose of Remdesivir. 08/07/2020. No acute events are noted SPO2 WNL on RA. No apparent distress. Denies any fever, chills, nausea, vomiting. Day 3/4 of Remdesivir discharge home tomorrow. Reason For Visit: SEPSIS, CAP, EDUARD Physical Exam Vital Signs: Temp Pulse Resp BP Pulse Ox 97.4 F 63 17 140/71 H 94 08/07/20 07:50 08/07/20 07:50 08/07/20 07:50 08/07/20 07:50 08/07/20 07:50 Intake & Output 08/06/20 08/07/20 08/08/20 06:59 06:59 06:59 Intake Total 550 1850 Output Total 100 4 Balance 450 1846 Weight 85.3 kg 85.2 kg General appearance: PRESENT: no acute distress, obese, well-developed, well-n ourished Head exam: PRESENT: atraumatic, normocephalic Respiratory exam: PRESENT: clear to auscultation sanjeev. ABSENT: rales, rhonchi, wheezes Cardiovascular exam: PRESENT: RRR. ABSENT: diastolic murmur, rubs, systolic murmur GI/Abdominal exam: PRESENT: normal bowel sounds, soft. ABSENT: distended, guarding, mass, organolmegaly, rebound, tenderness Neurological exam: PRESENT: alert, awake, oriented to person, oriented to place, oriented to time, oriented to situation, CN II-XII grossly intact. ABSENT: motor sensory deficit Skin exam: PRESENT: dry, intact, warm. ABSENT: cyanosis, rash Results Laboratory Results: 08/07/20 05:55 08/07/20 05:55 08/07/20 08/07/20 05:55 05:55 WBC 8.0 RBC 4.49 Hgb 13.0 L Hct 37.3 L MCV 83 MCH 28.9 MCHC 34.9 RDW 14.2 H Plt Count 349 Seg Neutrophils % Not Reportable Sodium 138.8 Potassium 4.6 Chloride 106 Carbon Dioxide 21 L Anion Gap 12 BUN 31 H Creatinine 1.12 Est GFR ( Amer) > 60 Glucose 103 Calcium 8.4 Magnesium 1.8 08/02/20 08/03/20 08/03/20 11:40 04:23 10:50 Creatine Kinase 588 H Troponin I 0.088 0.075 NT-Pro-B Natriuret Pep 1520 H Impressions: Chest X-Ray 08/02/20 12:40 IMPRESSION: In the appropriate clinical setting, findings are consistent with left lung base multifocal pneumonia. Head CT 08/02/20 12:48 IMPRESSION: NO ACUTE INTRACRANIAL FINDINGS. EVIDENCE OF ACUTE STROKE: NO. Assessment and Plan - Diagnosis (1) Acute respiratory failure with hypoxia Is this a current diagnosis for this admission?: Yes Plan: Much improved. SPO2 WNL on RA. Due to COVID-19 pneumonia and possible superimposed bacterial pneumonia caused by gram-positives including strep pneumonia. COVID-19 serology positive. On admission presented with chest x-ray positive for left lung base multifocal pneumonia, presented with SPO2 of 91. WBC WNL, afebrile, SPO2 WNL on 2 L nasal cannula. Blood and sputum cultures no growth so far. Day 6 IV antibiotics. Day 6 IV azithromycin. Day 6 IV ceftriaxone. Received 1 dose of IV levofloxacin in ED. Day 3 p.o. dexamethasone. Day 3 IV remdisivir. Continue empiric broad-spectrum IV antibiotics, p.o. dexamethasone, zinc sulfate, vitamin C, duo nebs, supplemental oxygen, PRN BiPAP, pulmonary toileting, flutter valve, incentive spirometry, LABA, LABA, ICS. Follow-up sputum and blood culture. (2) Pneumonia due to COVID-19 virus Is this a current diagnosis for this admission?: Yes Plan: As per #1. (3) Acute kidney injury superimposed on CKD Is this a current diagnosis for this admission?: Yes Plan: Prerenal most likely due to low p.o. intake. Baseline creatinine 1.6. Improving. Presented with creatinine of 1.92. Continue cautious volume resuscitation guided by volume status, avoid nephrotoxic meds. (4) CAD (coronary artery disease) Qualifiers: Coronary Disease-Associated Artery/Lesion type: [place] artery [place] vs. transplanted heart: [place] heart Associated angina: without angina Qualified Code(s): I25.10 - Atherosclerotic heart disease of [place] coronary artery without angina pectoris Is this a current diagnosis for this admission?: Yes Plan: Denies any anginal symptoms, mildly elevated troponin of 0.088 likely due to demand mismatch in the setting of CKD, no acute EKG changes. Continue antiplatelets, beta-blockers, ARB, statins. Trend troponins, if trending up we will consult cardiology. (5) COPD (chronic obstructive pulmonary disease) Qualifiers: COPD type: emphysema Emphysema type: centrilobular Qualified Code(s): J43.2 - Centrilobular emphysema Is this a current diagnosis for this admission?: Yes Plan: History of non-oxygen dependent COPD. Continue supplemental oxygen, LABA, LABA, ICS. Outpatient PCP and pulmonology follow-up. (6) Sepsis Qualifiers: Sepsis type: sepsis due to unspecified organism Sepsis acute organ dysfunction status: with acute organ dysfunction Severe sepsis acute organ dysfunction type: acute renal failure Acute renal failure type: unspecified Severe sepsis shock status: without septic shock Qualified Code(s): A41.9 - Sepsis, unspecified organism; R65.20 - Severe sepsis without septic shock; N17.9 - Acute kidney failure, unspecified Is this a current diagnosis for this admission?: Yes Plan: Likely due to underlying infectious process. Resolved. Vitals WNL. Continue empiric IV antibiotics, follow-up sputum and blood culture. Plan as per #1. - Plan Summary Summary: We will put him on Rocephin and Zithromax. We will give him some IV fluids. We will monitor the trend in his labs, especially his renal function. He looks very stable at this time. They put him on oxygen in the ER but he was not dyspneic at all and he smoked heavily for many years and has some clubbing of his digits so it may be difficult to get a good pulse oximetry in that regard. ER swabbed him for COVID so we will follow-up on that. - Time Time Spent with patient: 15-24 minutes Medications reviewed and adjusted accordingly: Yes Anticipated Discharge Disposition: Home, Self Care Anticipated Discharge Timeframe: within 24 hours
[2020-08-07] MEDS: FLUTICASONE/UMECLIDIN/VILANTER 100-62.5-25 MCG/DOSE IH SCH (10:47)
[2020-08-07] MEDS: ASPIRIN 81 MG TABLET, ENT COATED PO SCH (10:47)
[2020-08-07] MEDS: CHOLECALCIFEROL (D3) 1,000 UNIT (25 MCG) TABLET PO SCH (10:48)
[2020-08-07] MEDS: ASCORBIC ACID 500 MG TABLET PO SCH (10:48)
[2020-08-07] MEDS: ENOXAPARIN SODIUM INJ 80 MG/0.8 ML DISP.SYRIN SUBCUT SCH ×2 (10:50→21:40)
[2020-08-07] MEDS: CEFTRIAXONE 1 GM/D5W RTU 1 GM/50 ML RTUPB IV SCH (10:50)
[2020-08-07] MEDS: MONTELUKAST SODIUM 10 MG TABLET PO SCH (10:50)
[2020-08-07] MEDS: METOPROLOL TARTRATE 25 MG TABLET PO SCH ×2 (10:50→21:40)
[2020-08-07] MEDS: REMDESIVIR (EUA) 100 MG in NORMAL SALINE 250 ML IV SCH (11:28)
[2020-08-07] MEDS: AZITHROMYCIN 500 MG in DEXTROSE 5%-WATER 250 ML IV SCH (12:42)
[2020-08-07] MEDS: SIMVASTATIN 40 MG TABLET PO SCH (21:41)
[2020-08-08] MEDS: DEXAMETHASONE 4 MG TABLET PO SCH (05:44)
[2020-08-08 06:46] LABS: HEMOGLOBIN 13.2 g/dL (13.5-17.0); MEAN CORPUSCULAR HEMOGLOBIN 28.3 pg (27.0-33.4); MEAN CORPUSCULAR HGB CONC 33.8 g/dL (32.0-36.0); MEAN CORPUSCULAR VOLUME 84 fl (80-97); PLATELET COUNT 378 10^3/uL (150-450); RED BLOOD COUNT 4.67 10^6/uL (4.35-5.55); RED CELL DISTRIBUTION WIDTH 14.3 % (11.5-14.0); WHITE BLOOD COUNT 9.6 10^3/uL (4.0-10.5)
[2020-08-08] MEDS: MONTELUKAST SODIUM 10 MG TABLET PO SCH (09:17)
[2020-08-08] MEDS: METOPROLOL TARTRATE 25 MG TABLET PO SCH (09:17)
[2020-08-08] MEDS: CEFTRIAXONE 1 GM/D5W RTU 1 GM/50 ML RTUPB IV SCH (09:18)
[2020-08-08] MEDS: CHOLECALCIFEROL (D3) 1,000 UNIT (25 MCG) TABLET PO SCH (09:18)
[2020-08-08] MEDS: ASCORBIC ACID 500 MG TABLET PO SCH (09:18)
[2020-08-08] MEDS: ASPIRIN 81 MG TABLET, ENT COATED PO SCH (09:18)
[2020-08-08] MEDS: ENOXAPARIN SODIUM INJ 80 MG/0.8 ML DISP.SYRIN SUBCUT SCH (09:18)
[2020-08-08] MEDS: FLUTICASONE/UMECLIDIN/VILANTER 100-62.5-25 MCG/DOSE IH SCH (09:18)
[2020-08-08 09:25] LABS: APPEARANCE,URINE CLEAR; BILIRUBIN,URINE NEGATIVE (NEGATIVE); COLOR,URINE YELLOW; GLUCOSE, URINE NEGATIVE (NEGATIVE); KETONES,URINE NEGATIVE (NEGATIVE); LEUKOCYTE ESTERASE,URINE NEGATIVE (NEGATIVE); NITRITE,URINE NEGATIVE (NEGATIVE); PROTEIN,URINE NEGATIVE (NEGATIVE); URINE SPECIFIC GRAVITY 1.017; UROBILINOGEN,URINE NEGATIVE mg/dL (<2.0)
[2020-08-08] MEDS: REMDESIVIR (EUA) 100 MG in NORMAL SALINE 250 ML IV SCH (10:01)
[2020-08-08] MEDS: AZITHROMYCIN 500 MG in DEXTROSE 5%-WATER 250 ML IV SCH (11:13)
[2020-08-08 12:33] VITALS: BP 102/61
--- NOTE | 2020-08-17 07:55 | PDOC DISCHARGE SUMMARY ---
Impression - Admit/DC Date/PCP Admission Date/Primary Care Provider: 08/02/20 15:16 SANA COLLINS MD Discharge Date: 08/08/20 - Discharge Diagnosis (1) Acute respiratory failure with hypoxia Is this a current diagnosis for this admission?: Yes (2) Pneumonia due to COVID-19 virus Is this a current diagnosis for this admission?: Yes (3) Acute kidney injury superimposed on CKD Is this a current diagnosis for this admission?: Yes (4) CAD (coronary artery disease) Is this a current diagnosis for this admission?: Yes (5) COPD (chronic obstructive pulmonary disease) Is this a current diagnosis for this admission?: Yes (6) Sepsis Is this a current diagnosis for this admission?: Yes - Assessment Summary: We will put him on Rocephin and Zithromax. We will give him some IV fluids. We will monitor the trend in his labs, especially his renal function. He looks very stable at this time. They put him on oxygen in the ER but he was not dyspneic at all and he smoked heavily for many years and has some clubbing of his digits so it may be difficult to get a good pulse oximetry in that regard. ER swabbed him for COVID so we will follow-up on that. - Additional Information Discharge Diet: Cardiac Discharge Activity: Activity As Tolerated, Balance Activity w/Rest Referrals: SANA COLLINS MD [Primary Care Provider] - Follow up as needed Home Medications: Ascorbic Acid [Vitamin C with [place] Hips] 500 mg PO DAILY 08/02/20 Aspirin [Ecotrin 81 mg EC Tablet] 81 mg PO DAILY 08/02/20 Cholecalciferol (Vitamin D3) [Vitamin D3 1000 Unit Tablet] 2,000 unit PO DAILY 08/02/20 Fluticasone/Umeclidin/Vilanter [Trelegy 100-62.5-25 Mcg Ellipta 14 Dose/Dpi] 1 puff IH DAILY 08/02/20 Lisinopril/Hydrochlorothiazide [Lisinopril-Hctz 10-12.5 mg Tab] 1 tab PO QAM 08/02/20 Metoprolol Tartrate [Lopressor 25 mg Tablet] 25 mg PO Q12 08/02/20 Montelukast Sodium [Singulair 10 mg Tablet] 10 mg PO DAILY 08/02/20 Multivit-Min/FA/Lycopen/Lutein [Centrum Silver Men Tablet] 1 tab PO DAILY 08/02/20 Omeprazole 20 mg PO Q6AM 08/02/20 Simvastatin [Zocor 40 mg Tablet] 40 mg PO QHS 08/02/20 History of Present Illiness History of Present Illness: 74-year-old male with past medical history of COPD, CAD, presented to ED complaining of generalized weakness and fatigue and shortness of breath, endorses history of recent travel to [place], in ED was noted to be hypotensive, febrile and hypoxic. Hospital Course Hospital Course: (1) Acute respiratory failure with hypoxia Much improved. SPO2 WNL on RA. Due to COVID-19 pneumonia and possible superimposed bacterial pneumonia caused by gram-positives including strep pneumonia. COVID-19 serology positive. On admission presented with chest x-ray positive for left lung base multifocal pneumonia, presented with SPO2 of 91. WBC WNL, afebrile, SPO2 WNL on 2 L nasal cannula. Blood and sputum cultures no growth so far. Day 6 IV antibiotics. Day 6 IV azithromycin. Day 6 IV ceftriaxone. Received 1 dose of IV levofloxacin in ED. Day 4 p.o. dexamethasone. Day 4 IV remdisivir. Continue empiric broad-spectrum IV antibiotics, p.o. dexamethasone, zinc sulfate, vitamin C, duo nebs, supplemental oxygen, PRN BiPAP, pulmonary toileting, flutter valve, incentive spirometry, LABA, LABA, ICS. Follow-up sputum and blood culture. (2) Pneumonia due to COVID-19 virus As per #1. (3) Acute kidney injury superimposed on CKD Prerenal most likely due to low p.o. intake. Baseline creatinine 1.6. Improving. Presented with creatinine of 1.92. Continue cautious volume resuscitation guided by volume status, avoid nephrotoxic meds. (4) CAD (coronary artery disease) Denies any anginal symptoms, mildly elevated troponin of 0.088 likely due to demand mismatch in the setting of CKD, no acute EKG changes. Continue antiplatelets, beta-blockers, ARB, statins. Trend troponins, if trending up we will consult cardiology. (5) COPD (chronic obstructive pulmonary disease) History of non-oxygen dependent COPD. Continue supplemental oxygen, LABA, LABA, ICS. Outpatient PCP and pulmonology follow-up. (6) Sepsis Likely due to underlying infectious process. Resolved. Vitals WNL. Continue empiric IV antibiotics, follow-up sputum and blood culture. Plan as per #1. Physical Exam Vital Signs: Temp Pulse Resp BP Pulse Ox 97.8 F 62 18 102/61 98 08/08/20 12:32 08/08/20 12:32 08/08/20 12:32 08/08/20 12:32 08/08/20 12:32 General appearance: PRESENT: no acute distress, obese Respiratory exam: PRESENT: clear to auscultation sanjeev. ABSENT: rales, rhonchi, wheezes Cardiovascular exam: PRESENT: RRR. ABSENT: diastolic murmur, rubs, systolic murmur GI/Abdominal exam: PRESENT: normal bowel sounds, soft. ABSENT: distended, guard ing, mass, organolmegaly, rebound, tenderness Neurological exam: PRESENT: alert, awake, oriented to person, oriented to place, oriented to time, oriented to situation, CN II-XII grossly intact. ABSENT: motor sensory deficit Results Laboratory Results: WBC 9.6 10^3/uL (4.0-10.5) 08/08/20 05:45 RBC 4.67 10^6/uL (4.35-5.55) 08/08/20 05:45 Hgb 13.2 g/dL (13.5-17.0) L 08/08/20 05:45 Hct 39.0 % (37.9-51.0) 08/08/20 05:45 MCV 84 fl (80-97) 08/08/20 05:45 MCH 28.3 pg (27.0-33.4) 08/08/20 05:45 MCHC 33.8 g/dL (32.0-36.0) 08/08/20 05:45 RDW 14.3 % (11.5-14.0) H 08/08/20 05:45 Plt Count 378 10^3/uL (150-450) 08/08/20 05:45 Lymph % (Auto) Not Reportable 08/07/20 05:55 [place] % (Auto) Not Reportable 08/07/20 05:55 Eos % (Auto) Not Reportable 08/07/20 05:55 Baso % (Auto) Not Reportable 08/07/20 05:55 Absolute Neuts (auto) Not Reportable 08/07/20 05:55 Absolute Lymphs (auto) Not Reportable 08/07/20 05:55 Absolute Monos (auto) Not Reportable 08/07/20 05:55 Absolute Eos (auto) Not Reportable 08/07/20 05:55 Absolute Basos (auto) Not Reportable 08/07/20 05:55 Total Counted 100 08/07/20 05:55 Seg Neutrophils % Not Reportable 08/07/20 05:55 Seg Neuts % (Manual) 69 % (42-78) 08/07/20 05:55 Band Neutrophils % 1 % (3-5) L 08/07/20 05:55 Lymphocytes % (Manual) 16 % (13-45) 08/07/20 05:55 Atypical Lymphs % 5 % (0) 08/07/20 05:55 Monocytes % (Manual) 9 % (3-13) 08/07/20 05:55 Eosinophils % (Manual) 0 % (0-6) 08/07/20 05:55 Basophils % (Manual) 0 % (0-2) 08/07/20 05:55 Abs Neuts (Manual) 5.6 10^3/uL (1.7-8.2) 08/07/20 05:55 Abs Lymphs (Manual) 1.7 10^3/uL (0.5-4.7) 08/07/20 05:55 Abs Monocytes (Manual) 0.7 10^3/uL (0.1-1.4) 08/07/20 05:55 Absolute Eos (Manual) 0.0 10^3/uL (0.0-0.6) 08/07/20 05:55 Abs Basophils (Manual) 0.0 10^3/uL (0.0-0.2) 08/07/20 05:55 Hypersegmented Neuts PRESENT 08/07/20 05:55 Toxic Vacuolation PRESENT 08/07/20 05:55 Platelet Estimate Cancelled 08/04/20 06:19 Platelet Comment ADEQUATE 08/07/20 05:55 Anisocytosis SLIGHT 08/07/20 05:55 Ovalocytes SLIGHT 08/07/20 05:55 Ryann Cells SLIGHT 08/07/20 05:55 Schistocytes Not Reportable 08/07/20 05:55 RBC Morph Comment NORMO-CYTIC/CHROMIC 08/02/20 11:40 PT 14.3 SEC (11.4-15.4) 08/06/20 06:23 INR 1.09 08/06/20 06:23 D-Dimer 0.71 ug/mL (0.00-0.50) H 08/05/20 13:59 VBG pH 7.35 (7.30-7.42) 08/02/20 13:15 VBG pCO2 42.7 mmHg (35-63) 08/02/20 13:15 VBG HCO3 22.8 mmol/L (20-32) 08/02/20 13:15 VBG Base Excess -2.8 mmol/L 08/02/20 13:15 Sodium 138.8 mmol/L (137-145) 08/07/20 05:55 Potassium 4.6 mmol/L (3.6-5.0) 08/07/20 05:55 Chloride 106 mmol/L (98-107) 08/07/20 05:55 Carbon Dioxide 21 mmol/L (22-30) L 08/07/20 05:55 Anion Gap 12 (5-19) 08/07/20 05:55 BUN 31 mg/dL (7-20) H 08/07/20 05:55 Creatinine 1.12 mg/dL (0.52-1.25) 08/07/20 05:55 Est GFR ( Amer) > 60 (>60) 08/07/20 05:55 Est GFR (Non-Af Amer) Cancelled 08/04/20 06:19 Est GFR (MDRD) Non-Af > 60 (>60) 08/07/20 05:55 Glucose 103 mg/dL (75-110) 08/07/20 05:55 Lactic Acid 1.4 mmol/L (0.7-2.1) 08/02/20 14:53 Calcium 8.4 mg/dL (8.4-10.2) 08/07/20 05:55 Magnesium 1.8 mg/dL (1.6-2.3) 08/07/20 05:55 Total Bilirubin 0.4 mg/dL (0.2-1.3) 08/06/20 06:23 Direct Bilirubin 0.3 mg/dL (0.0-0.4) 08/06/20 06:23 Neonat Total Bilirubin Not Reportable 08/06/20 06:23 Neonat Direct Bilirubin Not Reportable 08/06/20 06:23 Neonat Indirect Bili Not Reportable 08/06/20 06:23 AST 37 U/L (17-59) 08/06/20 06:23 ALT 22 U/L (<50) 08/06/20 06:23 Alkaline Phosphatase 46 U/L (38-126) 08/06/20 06:23 Creatine Kinase 588 U/L (55-170) H 08/03/20 04:23 Troponin I 0.075 ng/mL 08/03/20 10:50 NT-Pro-B Natriuret Pep 1520 pg/mL (<450) H 08/02/20 11:40 Total Protein 6.1 g/dL (6.3-8.2) L 08/06/20 06:23 Albumin 3.5 g/dL (3.5-5.0) 08/06/20 06:23 EGFR Cancelled 08/04/20 06:19 Urine Color YELLOW 08/08/20 08:35 Urine Appearance CLEAR 08/08/20 08:35 Urine pH 6.0 (5.0-9.0) 08/08/20 08:35 Ur Specific [place] 1.017 08/08/20 08:35 Urine Protein NEGATIVE mg/dL (NEGATIVE) 08/08/20 08:35 Urine Glucose (UA) NEGATIVE mg/dL (NEGATIVE) 08/08/20 08:35 Urine Ketones NEGATIVE mg/dL (NEGATIVE) 08/08/20 08:35 Urine Blood NEGATIVE (NEGATIVE) 08/08/20 08:35 Urine Nitrite NEGATIVE (NEGATIVE) 08/08/20 08:35 Urine Bilirubin NEGATIVE (NEGATIVE) 08/08/20 08:35 Urine Urobilinogen NEGATIVE mg/dL (<2.0) 08/08/20 08:35 Ur Leukocyte Esterase NEGATIVE (NEGATIVE) 08/08/20 08:35 Urine WBC (Auto) 0 /HPF 08/08/20 08:35 Urine RBC (Auto) 0 /HPF 08/08/20 08:35 U Hyaline Cast (Auto) 1 /LPF 08/02/20 14:40 Urine Bacteria (Auto) TRACE /HPF 08/02/20 14:40 Squamous Epi Cells Auto <1 /HPF 08/05/20 06:41 Urine Mucus (Auto) RARE /LPF 08/08/20 08:35 Urine Ascorbic Acid 20 (NEGATIVE) H 08/08/20 08:35 COVID-19 Source See comment 08/02/20 15:20 COVID-19 (ANA) DETECTED (Not Detect) A 08/02/20 15:20 Influenza A (Rapid) NEGATIVE (NEGATIVE) 08/02/20 13:15 Influenza B (Rapid) NEGATIVE (NEGATIVE) 08/02/20 13:15 Slides for Path Review Cancelled 08/04/20 06:19 08/02/20 08/03/20 11:40 10:50 Troponin I 0.088 0.075 NT-Pro-B Natriuret Pep 1520 H Impressions: Chest X-Ray 08/02/20 12:40 IMPRESSION: In the appropriate clinical setting, findings are consistent with left lung base multifocal pneumonia. Head CT 08/02/20 12:48 IMPRESSION: NO ACUTE INTRACRANIAL FINDINGS. EVIDENCE OF ACUTE STROKE: NO. Stroke Is this a Stroke Patient?: No Acute Heart Failure Is this a Heart Failure Patient?: No
== END 2020-08-08 13:00 | disposition home or self-care (01) | DRG 871 ==
LOC: ER 11:07 → EH 15:16 → 3N 18:55
PROVIDERS: ADMIT Family Medicine; ATTEND Internal Medicine
PROC: 3E0234Z Introduction of Serum, Toxoid and Vaccine into Muscle, Percutaneous Approach (ICD-10-PCS; 2020-08-02)
PROC: XW033E5 Introduction of Remdesivir Anti-infective into Peripheral Vein, Percutaneous Approach, New Technology Group 5 (ICD-10-PCS; principal; 2020-08-04)
PROC: 3E02340 Introduction of Influenza Vaccine into Muscle, Percutaneous Approach (ICD-10-PCS; 2020-08-08)
DX: A41.9 Sepsis, unspecified organism (principal); U07.1 COVID-19; J12.89 Other viral pneumonia; J96.01 Acute respiratory failure with hypoxia; N17.9 Acute kidney failure, unspecified; R65.20 Severe sepsis without septic shock; N18.9 Chronic kidney disease, unspecified; J43.2 Centrilobular emphysema; I25.10 Atherosclerotic heart disease of native coronary artery without angina pectoris; Z87.891 Personal history of nicotine dependence; Z23 Encounter for immunization; Z79.899 Other long term (current) drug therapy
CPT/HCPCS: 36415; 70450; 71045; 80048; 80053; 81001; 82550; 82803; 83605; 83735; 83880; 84484; 85025; 85027; 85379; 85610; 87040; 87070; 87086; 87635; 87804; 90471; 90686; 90715; 93005; 93010; 94667; 94668; 94799; 99285; C9803; G0008; J0456; J0696; J1644; J1650; J1956; J3490; J7030; J7050; J7060; J7120; J8540